=== PATIENT | male | born 1945 | race Caucasian/White ===

== ENCOUNTER 2016-12-27 14:35 | Emergency (ER) | payer BC, MEDICAID ==
[~2016-12-27] VITALS: Ht 172.7 cm; Wt 77.1 kg
[2016-12-27 14:45] VITALS: BP 135/71
[2016-12-27] MEDS ORDERED: DIATR MEGLU/DIATRIZOATE SODIUM 30 ML BOTTLE (GASTROGRAPHIN) PO ONE (15:00)
[2016-12-27] MEDS ORDERED: DIATR MEGLU/DIATRIZOATE SODIUM 30 ML BOTTLE (GASTROGRAPHIN) ONE (15:07)
== END 2016-12-27 18:52 | disposition home or self-care (01) ==
LOC: ER 14:38
DX: Z43.1 Encounter for attention to gastrostomy (principal); N18.6 End stage renal disease; Z99.2 Dependence on renal dialysis
CPT/HCPCS: 74000-TC; A4606; Q9963; Z7610

== ENCOUNTER 2017-02-22 08:42 | Inpatient (IN) | payer BC, MEDICAID ==
[~2017-02-22] VITALS: Ht 165.1 cm; Wt 59.4 kg
--- NOTE | 2017-02-22 08:47 | NUR ---
Esthela from [facility] due to altered mental status. Per rescue pt is usually verbally responsive. Patient is vent trache dependent, tolerating current setting of ac 4 tv 510 fio2 40. Sating 100%. Gt noted covered with dry dressing. Abdomen non tendered and non distended. Patient with hd cath on rcw. Per report, last hd was 02/19/17. Patient's skin is warm to touch and non diaphoretic. Febrile at this time. Iv on right wrist noted patent. Rt at bedside. Gowned patient and connected to tele monitor. Awating for md blue
[2017-02-22 08:50] VITALS: BP 108/49
[2017-02-22] MEDS ORDERED: DOXA2TAB2 GT (09:03)
[2017-02-22] MEDS ORDERED: AMIN30LI2 GT (09:03)
[2017-02-22] MEDS ORDERED: ALLO100T GT (09:03)
[2017-02-22] MEDS ORDERED: ZOLP5TAB2 PO (09:03)
[2017-02-22] MEDS ORDERED: HYDR-552 GT (09:03)
[2017-02-22] MEDS ORDERED: ATOR20TA GT (09:03)
[2017-02-22] MEDS ORDERED: SIME80TA15 GT (09:03)
[2017-02-22] MEDS ORDERED: LORA-258 GT (09:03)
[2017-02-22] MEDS ORDERED: FAMO10TA94 GT (09:03)
[2017-02-22] MEDS ORDERED: CARV6.25 GT (09:03)
[2017-02-22] MEDS ORDERED: ACID1TAB14 GT (09:03)
[2017-02-22] MEDS ORDERED: AMLO5TAB2 GT (09:03)
[2017-02-22] MEDS ORDERED: ESCI10TA GT (09:03)
[2017-02-22] MEDS ORDERED: DIPH1TAB GT (09:03)
[2017-02-22] MEDS ORDERED: ISOS10TA2 GT (09:03)
[2017-02-22] MEDS ORDERED: BENA20TA78 GT (09:03)
[2017-02-22] MEDS ORDERED: FOLI0.8T23 GT (09:03)
[2017-02-22] MEDS ORDERED: FERR-58 GT (09:13)
[2017-02-22] MEDS ORDERED: IPRA0.2S49 NEB ×2 (09:13)
[2017-02-22] MEDS ORDERED: NA P133E RC (09:13)
[2017-02-22] MEDS ORDERED: NUT.237L31 GT (09:13)
[2017-02-22] MEDS ORDERED: ASCO250T5 GT (09:13)
[2017-02-22] MEDS ORDERED: MAGN400O6 GT (09:13)
[2017-02-22] MEDS ORDERED: ALBU2.5V38 NEB ×2 (09:13)
[2017-02-22] MEDS ORDERED: SEVE0.8P GT (09:13)
[2017-02-22] MEDS ORDERED: COLC0.6T69 GT (09:13)
[2017-02-22] MEDS ORDERED: ACET-868 GT (09:13)
--- NOTE | 2017-02-22 09:30 | NUR ---
lab tach at bedside for blood draw
[2017-02-22] MEDS ORDERED: IV NS 0.9% 1,000 ML ONE (09:46)
[2017-02-22] MEDS ORDERED: IV SET PRIMARY PUMP SET 1 EA INFUS.SET MC ONE ×3 (09:47→12:45)
[2017-02-22] MEDS ORDERED: VANCOMYCIN 1 GM in IV D5W 250 ML IV ONE (10:00)
[2017-02-22] MEDS ORDERED: IV NS 0.9% 1,000 ML BAG IV ONE (10:00)
[2017-02-22] MEDS ORDERED: CEFEPIME 1 GM in IV D5W 50 ML IV ONE (10:00)
[2017-02-22 10:01] LABS: BASOPHILS # (AUTO) 0.1 /CMM (0.0-0.2); BASOPHILS % (AUTO) 0.5 % (0.0-2.0); EOSINOPHILS % (AUTO) 0.1 % (0.0-6.0); HEMATOCRIT 26 % (39-51); HEMOGLOBIN 8.1 g/dL (13.5-17.5); LYMPHOCYTES # (AUTO) 0.2 /CMM (0.8-4.8); LYMPHOCYTES % (AUTO) 1.3 % (20.0-44.0); MEAN CORPUSCULAR HEMOGLOBIN 31 PG (26.0-33.0); MEAN CORPUSCULAR HGB CONC 31 g/dl (31.0-36.0); MEAN CORPUSCULAR VOLUME 99 fL (80-96); MONOCYTES # (AUTO) 0.2 /CMM (0.1-1.30); MONOCYTES % (AUTO) 1.4 % (2.0-12.0); NEUTROPHILS # (AUTO) 12.7 /CMM (1.8-8.9); NEUTROPHILS % (AUTO) 96.7 % (43.0-81.0); PLATELET COUNT (AUTO) 186 /CMM (150-450); RDW COEFFICIENT OF VARIATION 17.8 (11.5-15.0); RED BLOOD CELL COUNT(AUTO) 2.65 MIL/uL (4.5-6.0); WHITE BLOOD COUNT (AUTO) 13.2 K/uL (4.3-11.0)
[2017-02-22 10:05] LABS: ABG BASE EXCESS -5.8 mmol/L; ABG OXYGEN SATURATION 95.7 % (92.0-98.5); ABG PCO2 49.7 mmHg (35.0-45.0); ABG PH 7.248 (7.350-7.450); ABG PO2 87.9 mmHg (75.0-100.0); ABG TOTAL HEMOGLOBIN 8.4 G/dL (13.5-18.0); AaDO2 140.1 mmHg; COHb 1.3 % (0.5-1.5); MetHb 0.6 % (0.0-1.5); O2Hb 93.9 % (94.0-97.0); SITE, ABG Left Radial; VENT MODE, BG AC 4 500 40% +5
[2017-02-22 10:13] LABS: CALCIUM, SERUM 8.3 mg/dL (8.5-10.1); CARBON DIOXIDE 24 mmol/L (21-32); CHLORIDE 102 mmol/L (98-107); CREATININE 3.4 mg/dL (0.6-1.3); GLUCOSE 136 mg/dL (74-106); POTASSIUM 4.7 mmol/L (3.5-5.1); SODIUM SERUM 130 mmol/L (136-145); UREA NITROGEN, BLOOD 40 mg/dL (7-18)
[2017-02-22 10:17] LABS: INR 1.19 (0.87-1.13); PROTHROMBIN TIME 12.5 SECS (9.5-12.7)
[2017-02-22 10:19] LABS: ALANINE AMINOTRANSFERASE 13 U/L (12-78); ALBUMIN 2.1 g/dL (3.4-5.0); ALKALINE PHOSPHATASE 105 U/L (46-116); ASPARTATE AMINOTRANSFERASE 10 U/L (15-37); BILIRUBIN,DIRECT 0.2 mg/dL (0.0-0.2); BILIRUBIN,TOTAL 0.4 mg/dL (0.2-1.0); TOTAL PROTEIN, SERUM 5.6 g/dL (6.4-8.2)
[2017-02-22 10:21] LABS: TROPONIN I < 0.017 ng/mL (0.00-0.056)
--- NOTE | 2017-02-22 10:27 | NUR ---
PA PRUITT CALLED TO GIVE [phone]
[2017-02-22 10:33] LABS: LACTIC ACID 1.4 mmol/L (0.4-2.0)
[2017-02-22 11:22] LABS: BAND % (MANUAL) 15 % (0.0-5.0); LYMPHOCYTES % (MANUAL) 1 % (16-48); METAMYELOCYTES % 1 % (0-0); MONOCYTES % (MANUAL) 5 % (0-11.0); NEUTROPHILS % (MANUAL) 78 (42-76)
[2017-02-22 11:23] VITALS: BP 104/52
[2017-02-22 11:25] LABS: ANISOCYTOSIS 1+; PLATELET ESTIMATE ADEQUATE
--- NOTE | 2017-02-22 11:50 | NUR ---
Report given to WENDY Dela Cruz for change of condition
--- NOTE | 2017-02-22 11:53 | NUR ---
Patient transported to [facility] via acls protocol.
[2017-02-22 12:00] VITALS: BP 103/65
[2017-02-22] MEDS ORDERED: ACETAMINOPHEN 325 MG TABLET PO PRN (12:00)
[2017-02-22] MEDS ORDERED: ZOLPIDEM TARTRATE 5 MG TABLET PO PRN (12:00)
[2017-02-22] MEDS ORDERED: ONDANSETRON HCL/PF 4 MG/2 ML VIAL IVP PRN (12:00)
[2017-02-22] MEDS ORDERED: MORPHINE SULFATE INJ 2 MG/ML DISP.SYRIN IV PRN (12:00)
[2017-02-22] MEDS ORDERED: MAGNESIUM HYDROXIDE 30 ML UDC PO PRN (12:00)
[2017-02-22] MEDS ORDERED: PIPERACILLIN /TAZOBACTAM 3.375 G in IV D5W 100 ML IV SCH (12:00)
[2017-02-22] MEDS ORDERED: ENOXAPARIN SODIUM 40 MG/0.4 ML DISP.SYRIN SQ SCH (12:00)
[2017-02-22] MEDS ORDERED: MAG HYDROX/AL HYDROX/SIMETH 30 ML UDC PO PRN (12:00)
--- NOTE | 2017-02-22 12:30 | NUR ---
RN INITIAL NOTES PT IN BED, A/O X1, SLOW TO RESPOND TO QUESTION BUT DOES RESPOND (MOUTHS WORDS) APPROPRIATELY. [facility] VENT, SHILEY #6, AC 4, TV 500, FIO2 40%, PEEP 5, TOLERATING WELL. ON TELE MONITOR WITH SR 60'S, DENIES CHEST PAIN. PT HAS GT CLAMPED, CDI. IV ON RIGHT WRIST 18G SALINE FLUSHED, CDI, NO SIGNS OF INFECTION/INFILTRATION; RCW HD CATH (LAST HD PER FACILITY WAS 02/19/17); PT IS NPO FOR NOW. SKIN WAS ASSESSED/PICTURES TAKEN BY CHARGE NURSE TRINA; SACRAL STAGE 3, LEFT BUTTOCK STAGE 3, LEFT HIP/THIGH STAGE 1, BILATERAL FEET REDNESS/PINK, BUA DISCOLORATION/SCABS/BRUISES, LFA SKIN TEAR/SCABS/BRUISES, MEPILEX APPLIED, PICTURES IN PTS CHART; PTS BLE CONTRACTED. CALL LIGHT WITHIN EASY REACH, SAFETY MEASURES MAINTAINED, WILL CONTINUE TO MONITOR AND FOLLOW MD ORDERS. PT IN OVERALL STABLE CONDITION.
[2017-02-22] MEDS ORDERED: FEE PK DOSING 1 MIN EA MC ONE (12:38)
[2017-02-22] MEDS ORDERED: SECONDARY IV SET 1 EA INFUS.SET MC ONE ×3 (12:45→20:03)
[2017-02-22] MEDS: IV NS 0.9% 1,000 ML IV PRN (12:55)
[2017-02-22] MEDS ORDERED: PIPERACILLIN /TAZOBACTAM 2.25 G in IV D5W 50 ML IV SCH (13:00)
[2017-02-22] MEDS ORDERED: LEVOFLOXACIN 500 MG /D5W 100ML 100 ML IV ONE (13:00)
[2017-02-22] MEDS: HEPARIN SODIUM, PORCINE 5000 UNITS/1 ML VIAL SQ SCH (13:23)
[2017-02-22] MEDS ORDERED: ALBUTEROL FS 2.5 MG/3 ML VIAL.NEB NEB PRN (15:30)
[2017-02-22] MEDS ORDERED: NA PHOS,M-B/NA PHOS,DI-BA 1 EA ENEMA RC PRN (15:30)
[2017-02-22] MEDS ORDERED: IPRATROPIUM NEB FS 0.5 MG/2.5 ML AMPUL.NEB NEB PRN (15:30)
[2017-02-22 16:00] VITALS: BP 102/52
[2017-02-22] MEDS: FERROUS SULFATE (325 MG) 325 MG/TAB TABLET GT SCH (17:00)
[2017-02-22] MEDS: BENAZEPRIL HCL 20 MG TABLET GT SCH (17:00)
[2017-02-22] MEDS: PROSOURCE / PROSTAT (PYXIS) 30 ML UDC GT SCH (17:00)
[2017-02-22] MEDS: ISOSORBIDE DINITRATE (10MG) 10 MG TABLET GT SCH (17:00)
[2017-02-22] MEDS: ACIDOPHILUS/BULGARICUS 1 EACH TAB.CHEW GT SCH (17:00)
[2017-02-22] MEDS: ESCITALOPRAM OXALATE (10 MG) 10 MG TABLET GT SCH (17:00)
[2017-02-22] MEDS: CARVEDILOL 6.25 MG TABLET GT SCH (17:00)
[2017-02-22] MEDS: SEVELAMER CARBONATE 0.8 GM POWD.PACK GT SCH (17:01)
[2017-02-22] MEDS: LORAZEPAM 0.5 MG TABLET GT SCH ×2 (17:02→23:08)
[2017-02-22] MEDS: DOXAZOSIN MESYLATE (1 MG) 1 MG TABLET GT SCH (17:30)
[2017-02-22] MEDS: ALBUTEROL FS 2.5 MG/3 ML VIAL.NEB NEB SCH ×2 (17:34→20:00)
[2017-02-22] MEDS: IPRATROPIUM NEB FS 0.5 MG/2.5 ML AMPUL.NEB NEB SCH ×2 (17:34→20:00)
--- NOTE | 2017-02-22 18:47 | NUR ---
RN NOTES PT IS REFUSING TO HAVE PILLOWS UNDER AND BETWEEN HIS LEGS, EVEN AFTER DISCUSSING THE PROS TO HAVING THEM. PTS YOUNGER BROTHER IS AT BEDSIDE. SUCTIONED PT TWICE, SMALL AMOUNT OF YELLOW PHLEGM.
--- NOTE | 2017-02-22 19:07 | NUR ---
RN CLOSING NOTES PT IN BED, COMFORTABLE, IV CDI, NO SIGNS OF INFECTION/INFILTRATION, HD CATH INTACT, ALL MD ORDERS CARRIED OUT, TOLERATING MECH VENT WELL, DENIES CHEST PAIN. CALL LIGHT WITHIN EASY REACH, SAFETY MEASURES MAINTAINED, REPORT GIVEN TO NIGHT NURSE FOR MAVERICK. PTS YOUNGER BROTHER AT BEDSIDE.
--- NOTE | 2017-02-22 19:30 | NUR ---
RN INITIAL NOTES RECEIVED PT AWAKE ON BED, NON-VERBAL BUT ABLE TO MOUTH WORDS. ON VENT, SHILEY 6, AC 4, TV 500, 40% FIO2, PEEP 5, SATURATING WELL. CURRENTLY SR ON THE MONITOR, HR 70'S. PT IS ANURIC. NPO, GTUBE IS CLAMPED. RIGHT CHEST WALL HD CATH NOTED. RIGHT WRIST 18G WITH NS @ 75MLS/HR, FLUSHED AND PATENT, NO S/S OF INFILTRATION/INFECTION, DRESSING CDI. PATIENT REFUSES BILATERAL LEGS AND FEET TO BE OFFLOADED. BED LOW AND LOCKED, SIDERAILS UP. WILL MONITOR
[2017-02-22 20:00] VITALS: BP 104/46
[2017-02-22] MEDS: MEROPENEM 500 MG in IV NS 0.9% 50 ML IV SCH (20:10)
[2017-02-22] MEDS: SIMETHICONE 80 MG TAB.CHEW GT SCH (20:45)
--- NOTE | 2017-02-22 23:09 | NUR ---
RN NOTES HELD THE SCHEDULED 0.5MG ATIVAN PO BECAUSE PATIENT HAS BEEN DROWSY.
[2017-02-23] VITALS: BP 114/52
[2017-02-23] MEDS: HEPARIN SODIUM, PORCINE 5000 UNITS/1 ML VIAL SQ SCH ×2 (00:06→13:17)
[2017-02-23] MEDS: ALBUTEROL FS 2.5 MG/3 ML VIAL.NEB NEB SCH ×7 (00:17→23:51)
[2017-02-23] MEDS: IPRATROPIUM NEB FS 0.5 MG/2.5 ML AMPUL.NEB NEB SCH ×7 (00:17→23:51)
[2017-02-23 04:00] VITALS: BP 115/49
[2017-02-23] MEDS: SIMETHICONE 80 MG TAB.CHEW GT SCH ×3 (04:56→20:54)
[2017-02-23] MEDS: IV NS 0.9% 1,000 ML IV PRN (04:57)
[2017-02-23] MEDS: LORAZEPAM 0.5 MG TABLET GT SCH ×3 (06:00→18:00)
--- NOTE | 2017-02-23 06:03 | NUR ---
RN NOTES HELD THE SCHEDULED 0.5MG ATIVAN PO BECAUSE PATIENT HAS BEEN DROWSY.
--- NOTE | 2017-02-23 06:30 | NUR ---
RN CLOSING NOTES PT REMAINS STABLE OF THE MOMENT. DUE MEDS GIVEN, AM CARE PROVIDED. WILL ENDORSE TO AM RN
--- NOTE | 2017-02-23 07:10 | NUR ---
RN INITIAL NOTE RECEIVED PT FROM PM NURSE. PT A/O X1, MOUTH WORDS. HARJINDER #6 AC 4 TV 500 FI02 40% PEEP 5 NO S/S OF ACUTE RESP DISTRESS. TELE SR. . GT NPO. IV R WRIST 18 G NS @75 ML/HR RCW HD CATH. PT CLEAN WARM AND DRY. ALL SAFETY MEASURES IN PLACE.WILL CONTINUE TO MONITOR CLOSELY
[2017-02-23 07:18] LABS: EOSINOPHILS % (AUTO) 0.3 % (0.0-6.0); HEMATOCRIT 26 % (39-51); HEMOGLOBIN 8.1 g/dL (13.5-17.5); LYMPHOCYTES # (AUTO) 0.2 /CMM (0.8-4.8); LYMPHOCYTES % (AUTO) 2.8 % (20.0-44.0); MEAN CORPUSCULAR HEMOGLOBIN 31 PG (26.0-33.0); MEAN CORPUSCULAR HGB CONC 31 g/dl (31.0-36.0); MEAN CORPUSCULAR VOLUME 100 fL (80-96); MONOCYTES # (AUTO) 0.3 /CMM (0.1-1.30); MONOCYTES % (AUTO) 4.1 % (2.0-12.0); NEUTROPHILS # (AUTO) 7.2 /CMM (1.8-8.9); NEUTROPHILS % (AUTO) 92.8 % (43.0-81.0); PLATELET COUNT (AUTO) 157 /CMM (150-450); RDW COEFFICIENT OF VARIATION 19.3 (11.5-15.0); RED BLOOD CELL COUNT(AUTO) 2.62 MIL/uL (4.5-6.0); WHITE BLOOD COUNT (AUTO) 7.7 K/uL (4.3-11.0)
[2017-02-23 07:35] LABS: ALBUMIN 1.8 g/dL (3.4-5.0); BILIRUBIN,TOTAL 0.3 mg/dL (0.2-1.0); CALCIUM, SERUM 7.7 mg/dL (8.5-10.1); CREATININE 3.6 mg/dL (0.6-1.3); MAGNESIUM 2.3 mg/dL (1.8-2.4); PHOSPHORUS 3.7 mg/dL (2.5-4.9); POTASSIUM 4.5 mmol/L (3.5-5.1); TOTAL PROTEIN, SERUM 5.2 g/dL (6.4-8.2)
[2017-02-23 08:00] VITALS: BP 120/47
--- NOTE | 2017-02-23 08:45 | NUR ---
RN NOTE CONTACTED AUDRA FROM HD. POSSIBLE HD TODAY FOR PT.
[2017-02-23] MEDS: MEROPENEM 500 MG in IV NS 0.9% 50 ML IV SCH ×2 (08:50→20:54)
[2017-02-23] MEDS: PANTOPRAZOLE 40 MG VIAL IV SCH (08:55)
[2017-02-23] MEDS: ALLOPURINOL 100 MG TABLET GT SCH (08:55)
[2017-02-23] MEDS: FAMOTIDINE (20 MG) 20 MG TABLET GT SCH (08:55)
[2017-02-23] MEDS: SEVELAMER CARBONATE 0.8 GM POWD.PACK GT SCH ×3 (08:55→17:59)
[2017-02-23] MEDS: FERROUS SULFATE (325 MG) 325 MG/TAB TABLET GT SCH ×3 (08:56→18:00)
[2017-02-23] MEDS: ASCORBIC ACID 500 MG TABLET GT SCH (08:57)
[2017-02-23] MEDS: ACIDOPHILUS/BULGARICUS 1 EACH TAB.CHEW GT SCH ×2 (08:57→17:59)
[2017-02-23] MEDS: ESCITALOPRAM OXALATE (10 MG) 10 MG TABLET GT SCH ×2 (08:57→18:00)
[2017-02-23] MEDS: COLCHICINE 0.6 MG TABLET GT SCH (08:59)
[2017-02-23] MEDS: BENAZEPRIL HCL 20 MG TABLET GT SCH ×2 (09:00→17:00)
[2017-02-23] MEDS: CARVEDILOL 6.25 MG TABLET GT SCH ×2 (09:00→16:59)
[2017-02-23] MEDS: VIT B CMPLX 3/FA/VIT C/BIOTIN 1 TAB TABLET GT SCH (09:00)
[2017-02-23] MEDS: AMLODIPINE BESYLATE 5 MG TABLET GT SCH (09:00)
[2017-02-23] MEDS: DOXAZOSIN MESYLATE (1 MG) 1 MG TABLET GT SCH ×2 (09:00→16:59)
[2017-02-23] MEDS: ISOSORBIDE DINITRATE (10MG) 10 MG TABLET GT SCH ×3 (09:00→17:00)
[2017-02-23] MEDS: ATORVASTATIN 10 MG TABLET GT SCH (09:01)
[2017-02-23] MEDS: PROSOURCE / PROSTAT (PYXIS) 30 ML UDC GT SCH ×2 (09:02→17:59)
--- NOTE | 2017-02-23 09:15 | NUR ---
WOUND CARE CONSULT: PT CALM AT THIS TIME. WOUND VAC DSG CHANGED ON RT HEEL. PHOTO TAKEN BY RN. SKIN PREP AND VAC DRAPE TO PERIWOUND AREA, GRANUFOAM TO WOUND, BRIDGING TECHNIQUE USED. PT TOLERATED WELL. ONLY SCANT AMOUNT OF PINK DRAINAGE NOTED. OFFLOADING OF RT HEEL VERY DIFFICULT DUE TO CONTRACTURE. HEELS FLOATED. PT ON FIRST STEP MATTRESS. MD IN AGREEMENT WITH PLAN OF CARE.
--- NOTE | 2017-02-23 09:26 | NUR ---
WOUND CARE CONSULT: PT PRESENTS WITH UNSTAGEABLE ULCERS TO LEFT BUTTOCK AND SACRUM, PRESENT ON ADMISSION. PT HAS CONTRACTED LOWER EXTREMITIES. 4+ PITTING EDEMA NOTED TO FEET WITH EDEMA TO UPPER EXTREMITIES ALSO AND SOME GENERALIZED EDEMA. ALL SKIN AND WOUND RECOMMENDATIONS DISCUSSED WITH NURSING STAFF. RECOMMEND SURGICAL CONSULT. PT ON [place] ISOFLEX LOW AIRLOSS BED. WILL SEE PRN. JOYA IN AGREEMENT WITH PLAN OF CARE. Addendum: 02/23/17 at 0928 by VEENA SARAVIA WNDNU Amended: Links added.
[2017-02-23] MEDS ORDERED: HYDROGEL DRESSING 90 GM TUBE TP PRN (09:30)
[2017-02-23] MEDS: HYDROGEL DRESSING 90 GM TUBE TP SCH (10:26)
[2017-02-23 11:43] LABS: THYROID STIMULATING HORMONE 8.568 uIU/mL (0.358-3.74)
[2017-02-23 12:00] VITALS: BP 123/47
[2017-02-23] MEDS ORDERED: EPOETIN ALFA (10,000 UNIT) 10,000 UNIT/ML VIAL SQ ONE (12:00)
--- NOTE | 2017-02-23 12:08 | NUR ---
RN NOTE NON-ADMINISTRATION FOR ATIVAN. NO S/S OF AGITATION PT NOT RESTLESS CALM AND OPENS EYES SPONTANEOUSLY.
[2017-02-23] MEDS ORDERED: VANCOMYCIN 500 MG in IV D5W 100 ML IV PRN (13:00)
[2017-02-23] MEDS: NEOMY SULF/BACITRAC ZN/POLY 15 GM TUBE TP SCH (13:30)
--- NOTE | 2017-02-23 13:31 | NUR ---
PT BEING WORKED ON, RN WILL CALL WHEN READY.
[2017-02-23] MEDS ORDERED: LIDOCAINE 1%-EPI 1:100,000 20 ML VIAL TP ONE (14:00)
[2017-02-23] MEDS ORDERED: SILVER NITRATE APPLICATOR 1 EA BOX TP ONE (14:00)
--- NOTE | 2017-02-23 15:10 | NUR ---
PT GETTING DIALYSIS, TRY CT SCAN AROUND 1630.
[2017-02-23 16:00] VITALS: BP 123/49
[2017-02-23] MEDS ORDERED: VANCOMYCIN 1 GM in IV D5W 250 ML IV ONE (17:00)
[2017-02-23] MEDS: RIFAMPIN 300 MG CAPSULE PO SCH (19:12)
--- NOTE | 2017-02-23 19:20 | NUR ---
RN INIITAL NOTE RECEIVED PT IN NO ACUTE DISTRESS IN BED. PT IS A/O X 1 AND ABLE TO MOUTH WORDS. PT IS ON MECHANICAL VENT VIA TRACH. TRACH SITE IS CLEAN DRY AND INTACT. PT TOLERATING VENT SETTING WELL. PT IS ON TELE WITH SR 1ST DEGREE AV BLOCK ON THE MONITOR. PT HAS GTUBE THAT IS CLEAN DRY INTACT AND PATENT WITH WATER FLUSH. PT IS NPO AND GTUBE IS CURRENTLY CLAMPED. PT DOES NOT HAVE ANY S/S OF SOB, DIFFICULTY BREATHING OR PAIN AT THIS TIME. PT HAS RWRIST 18G THAT IS CLEAN DRY INTACT AND PATENT WITH NS @ 75ML/HR. PT HAS RCW HD CATH THAT IS CLEAN DRY AND INTACT. BED IN LOW LOCK POSITION WITH RIALS UP X 2. CALL LIGHT WITHIN REACH AND ALL SAFETY MEASURES ENSURED AND CARRIED OUT. WILL CONTINUE TO MONITOR PT
--- NOTE | 2017-02-23 19:51 | NUR ---
RN CLOSING NOTE PT A/O X1, MOUTH WORDS. DENINANCY #6 AC 12 TV 550 FI02 40% PEEP 5 NO S/S OF ACUTE RESP DISTRESS. TELE SR. . GT NPO. IV R WRIST 18 G NS @75 ML/HR RCW HD CATH.PT HAD HD TODAY 2L OUT. PT CLEAN WARM AND DRY. ALL SAFETY MEASURES IN PLACE. REPORT GIVEN TO PM NURSE.
[2017-02-23 20:00] VITALS: BP 123/62
[2017-02-23] MEDS ORDERED: IV NS 0.9% 250 ML IV ONE (20:53)
[2017-02-23] MEDS ORDERED: SECONDARY IV SET 1 EA INFUS.SET MC ONE (20:58)
--- NOTE | 2017-02-23 23:00 | NUR ---
RN NOTE TRIED TO CONTACT SON FOR CONSENT TO DEBRIDEMENT OF SACRUM. UNABLE TO CONTACT SON. TRIED TWICE. WILL TRY AGAIN IN THE AM.
[2017-02-24] VITALS: BP 123/62
[2017-02-24] MEDS: LORAZEPAM 0.5 MG TABLET GT SCH ×4 (00:35→18:00)
[2017-02-24] MEDS: HEPARIN SODIUM, PORCINE 5000 UNITS/1 ML VIAL SQ SCH ×2 (00:54→13:00)
[2017-02-24 04:00] VITALS: BP 124/59
[2017-02-24] MEDS: ALBUTEROL FS 2.5 MG/3 ML VIAL.NEB NEB SCH ×6 (04:05→23:04)
[2017-02-24] MEDS: IPRATROPIUM NEB FS 0.5 MG/2.5 ML AMPUL.NEB NEB SCH ×6 (04:05→23:05)
[2017-02-24] MEDS: SIMETHICONE 80 MG TAB.CHEW GT SCH ×3 (05:50→21:16)
--- NOTE | 2017-02-24 07:17 | NUR ---
RN CLOSING NOTE PT REMAINS IN NO ACUTE DISTRESS IN BED. PT DID NOT HAVE ANY SIGNIFICANT CHANGE IN CONDITION DURING SHIFT. ALL NEEDS MET ALL ORDERS CARRIED OUT. WILL ENDORSE TO AM RN FOR CONTINUITY OF CARE.
--- NOTE | 2017-02-24 07:30 | NUR ---
INITIAL NOTE PATIENT RESTING IN BED, A+OX3, MOUTHS WORDS. BREATHING EVEN AND UNLABORED WITH MECH VENT. GT PATENT, NO RESIDUALS, NO LEAKING, NO FEEDING. R WRIST IV PATENT. PLAN FOR DEBRIDEMENT. DISCUSSED PLAN OF CARE. REPOSITIONED. CALL LIGHT IN REACH.
--- NOTE | 2017-02-24 07:36 | NUR ---
RN NOTE TRIED TO CONTACT SON TO GET CONSENT FOR DEBRIDEMENT OF SACRUM. UNABLE TO REACH SON. TRIED TO CALL 3 TIMES AND UNABLE TO LEAVE MESSAGE. WILL ENDORSE TO AM RN.
[2017-02-24 08:00] VITALS: BP_SYST 132; BP_SYST 137; BP_DIAS 59; BP_DIAS 62
[2017-02-24 08:03] LABS: BASOPHILS % (AUTO) 0.1 % (0.0-2.0); EOSINOPHILS % (AUTO) 0.6 % (0.0-6.0); HEMATOCRIT 25 % (39-51); HEMOGLOBIN 7.8 g/dL (13.5-17.5); LYMPHOCYTES # (AUTO) 0.2 /CMM (0.8-4.8); LYMPHOCYTES % (AUTO) 4.7 % (20.0-44.0); MEAN CORPUSCULAR HEMOGLOBIN 31 PG (26.0-33.0); MEAN CORPUSCULAR HGB CONC 31 g/dl (31.0-36.0); MEAN CORPUSCULAR VOLUME 99 fL (80-96); MONOCYTES # (AUTO) 0.3 /CMM (0.1-1.30); MONOCYTES % (AUTO) 6.3 % (2.0-12.0); NEUTROPHILS # (AUTO) 4.5 /CMM (1.8-8.9); NEUTROPHILS % (AUTO) 88.3 % (43.0-81.0); PLATELET COUNT (AUTO) 143 /CMM (150-450); RDW COEFFICIENT OF VARIATION 19.3 (11.5-15.0); RED BLOOD CELL COUNT(AUTO) 2.52 MIL/uL (4.5-6.0); WHITE BLOOD COUNT (AUTO) 5.2 K/uL (4.3-11.0)
[2017-02-24] MEDS: FAMOTIDINE (20 MG) 20 MG TABLET GT SCH (08:14)
[2017-02-24] MEDS: SEVELAMER CARBONATE 0.8 GM POWD.PACK GT SCH ×3 (08:14→16:01)
[2017-02-24] MEDS: PANTOPRAZOLE 40 MG VIAL IV SCH (08:14)
[2017-02-24] MEDS: COLCHICINE 0.6 MG TABLET GT SCH (08:14)
[2017-02-24] MEDS: AMLODIPINE BESYLATE 5 MG TABLET GT SCH (08:15)
[2017-02-24] MEDS: ACIDOPHILUS/BULGARICUS 1 EACH TAB.CHEW GT SCH ×2 (08:15→16:01)
[2017-02-24] MEDS: RIFAMPIN 300 MG CAPSULE PO SCH (08:15)
[2017-02-24] MEDS: ATORVASTATIN 10 MG TABLET GT SCH (08:16)
[2017-02-24] MEDS: ISOSORBIDE DINITRATE (10MG) 10 MG TABLET GT SCH ×3 (08:16→16:00)
[2017-02-24] MEDS: ESCITALOPRAM OXALATE (10 MG) 10 MG TABLET GT SCH ×2 (08:16→16:01)
[2017-02-24] MEDS: PROSOURCE / PROSTAT (PYXIS) 30 ML UDC GT SCH ×2 (08:16→16:01)
[2017-02-24] MEDS: BENAZEPRIL HCL 20 MG TABLET GT SCH ×2 (08:16→16:01)
[2017-02-24] MEDS: ALLOPURINOL 100 MG TABLET GT SCH (08:17)
[2017-02-24] MEDS: ASCORBIC ACID 500 MG TABLET GT SCH (08:17)
[2017-02-24] MEDS: DOXAZOSIN MESYLATE (1 MG) 1 MG TABLET GT SCH ×2 (08:17→16:01)
[2017-02-24] MEDS: VIT B CMPLX 3/FA/VIT C/BIOTIN 1 TAB TABLET GT SCH (08:17)
[2017-02-24] MEDS: CARVEDILOL 6.25 MG TABLET GT SCH ×2 (08:17→16:02)
[2017-02-24] MEDS: NEOMY SULF/BACITRAC ZN/POLY 15 GM TUBE TP SCH (08:18)
[2017-02-24] MEDS: HYDROGEL DRESSING 90 GM TUBE TP SCH (08:18)
[2017-02-24] MEDS: FERROUS SULFATE (325 MG) 325 MG/TAB TABLET GT SCH ×3 (08:18→16:01)
[2017-02-24] MEDS: MEROPENEM 500 MG in IV NS 0.9% 50 ML IV SCH ×2 (08:33→21:16)
[2017-02-24 08:34] LABS: CALCIUM, SERUM 7.4 mg/dL (8.5-10.1); CREATININE 3.1 mg/dL (0.6-1.3); POTASSIUM 3.9 mmol/L (3.5-5.1)
[2017-02-24 10:01] LABS: ABG BASE EXCESS -3.1 mmol/L; ABG OXYGEN SATURATION 95.2 % (92.0-98.5); ABG PCO2 41.7 mmHg (35.0-45.0); ABG PH 7.347 (7.350-7.450); ABG PO2 81.7 mmHg (75.0-100.0); ABG TOTAL HEMOGLOBIN 8.2 G/dL (13.5-18.0); AaDO2 155.5 mmHg; COHb 0.8 % (0.5-1.5); MetHb 0.8 % (0.0-1.5); O2Hb 93.7 % (94.0-97.0); PEEP,BG 5 cm H2O; SITE, ABG Right Brachial; VT, ABG 550 mL
--- NOTE | 2017-02-24 11:26 | NUR ---
CALLED SON AGAIN, NO ANSWER. PATIENT'S BROTHER EDITH PRUITT CALLED [facility] AND SAID HE IS THE DPOA. REQUESTED PA BRING PAPER WORK OF CONSERVATORSHIP. BROTHER SAID HE WILL COME TODAY AND BRING IT. BROTHER GAVE VERBAL CONSENT FOR DEBRIDEMENT, CHARGE NURSE, SOON, WITNESSED.
--- NOTE | 2017-02-24 11:29 | NUR ---
PER DR. LORA VERBAL ORDER- RESUME FEEDING GLYTROL @ 50ML HR X24HRS.
[2017-02-24 12:00] VITALS: BP_SYST 120; BP_SYST 122; BP_DIAS 55; BP_DIAS 61
[2017-02-24] MEDS ORDERED: LEVOFLOXACIN 250 MG /D5W 50 ML 250 MG in PREMIX 1 EA IV SCH (13:00)
[2017-02-24] MEDS ORDERED: VANCOMYCIN 1 GM in IV D5W 250 ML IV SCH (13:00)
[2017-02-24] MEDS: GLYTROL 1,000 ML BAG GT SCH (13:03)
--- NOTE | 2017-02-24 13:37 | NUR ---
HD- 1L OUT, BP 119/55
[2017-02-24 16:00] VITALS: BP 128/62
--- NOTE | 2017-02-24 16:56 | NUR ---
DR. Dallas MOORE REMOVED RCW HD CATHETER. DR. MOORE AND DR. ARIEL PRATT SIGNED CONSENT FORM. NO BLEEDING NOTED. PT. TOLERATED PROCEDURE.
--- NOTE | 2017-02-24 19:08 | NUR ---
CLOSING NOTE PATIENT STABLE AT THE END OF THIS SHIFT. ATIVAN HELD BECAUSE PATIENT MOSTLY SLEEPING, HOWEVER AROUSES EASILY. BREATHING WNL WITH MECH VENT, LOC UNCHANGED. REPOSITIONED Q2 HR. BROTHER DID NOT VISIT. WILL ENDORSE TO NIGHT NURSE TO F/U ABOUT DPOA PAPER WORK, DR. TORRES AND JOSE M AWARE OF SITUATION. CALL LIGHT IN REACH.
--- NOTE | 2017-02-24 19:15 | NUR ---
RN INITIAL NOTES PT IS IN BED, HOB ELEVATED, A/O x1, MOUTH WORDS. NO SIGNS AND SYMPTOMS OF RESPIRATORY DISTRESS NOTED. TRACH INTACT, ON MECHANICAL VENT SHILEY #6, AC12, 550 TV, FIO2 40%, PEEP 5, TOLERATING VENT SETTINGS. ON TELE MONITOR SINUS RHYTHM. ON GT FEEDING GLYTROL @ 50CC/HR, 0 RESIDUAL NOTED. CALL LIGHTS WITHIN REACHED.
[2017-02-24 20:00] VITALS: BP 142/67
[2017-02-24] MEDS ORDERED: IV NS 0.9% 250 ML IV ONE (21:08)
[2017-02-25] VITALS: BP 133/61
--- NOTE | 2017-02-25 00:11 | NUR ---
ALL [facility] ONCE CLEARED FOR PATIENTS SAFETY.
[2017-02-25] MEDS: HEPARIN SODIUM, PORCINE 5000 UNITS/1 ML VIAL SQ SCH ×2 (00:44→12:57)
--- NOTE | 2017-02-25 00:44 | NUR ---
RN NOTES HEPARIN - NON ADMIN - PT FOR POSSIBLE DEBRIDEMENT AT AM.
[2017-02-25] MEDS: IPRATROPIUM NEB FS 0.5 MG/2.5 ML AMPUL.NEB NEB SCH ×6 (03:57→23:21)
[2017-02-25] MEDS: ALBUTEROL FS 2.5 MG/3 ML VIAL.NEB NEB SCH ×6 (03:57→23:21)
[2017-02-25 04:00] VITALS: BP 137/66
[2017-02-25] MEDS: SIMETHICONE 80 MG TAB.CHEW GT SCH ×3 (05:42→20:36)
[2017-02-25] MEDS: LORAZEPAM 0.5 MG TABLET GT SCH ×4 (05:45→17:46)
[2017-02-25 06:57] LABS: EOSINOPHILS # (AUTO) 0.1 /CMM (0.0-0.7); EOSINOPHILS % (AUTO) 1.2 % (0.0-6.0); HEMATOCRIT 25 % (39-51); LYMPHOCYTES # (AUTO) 0.3 /CMM (0.8-4.8); MEAN CORPUSCULAR HEMOGLOBIN 31 PG (26.0-33.0); MEAN CORPUSCULAR HGB CONC 32 g/dl (31.0-36.0); MEAN CORPUSCULAR VOLUME 98 fL (80-96); MONOCYTES # (AUTO) 0.4 /CMM (0.1-1.30); MONOCYTES % (AUTO) 6.3 % (2.0-12.0); NEUTROPHILS # (AUTO) 5.4 /CMM (1.8-8.9); NEUTROPHILS % (AUTO) 87.5 % (43.0-81.0); PLATELET COUNT (AUTO) 128 /CMM (150-450); RDW COEFFICIENT OF VARIATION 18.6 (11.5-15.0); RED BLOOD CELL COUNT(AUTO) 2.57 MIL/uL (4.5-6.0); WHITE BLOOD COUNT (AUTO) 6.2 K/uL (4.3-11.0)
[2017-02-25 07:13] LABS: CALCIUM, SERUM 7.7 mg/dL (8.5-10.1); CREATININE 2.8 mg/dL (0.6-1.3)
--- NOTE | 2017-02-25 07:35 | NUR ---
RN INITIAL NOTES PT IN BED, A/O X1, MOUTHS WORDS, ANSWERS QUESTIONS APPROPRIATELY, HOB ELEVATED 35 DEGREES, [facility] SHILEY #16, AC 16, TV 550, FIO2 40%, PEEP 5, TOLERATING WELL. ON TELE MONITOR WITH SR 70'S, DENIES CHEST PAIN. PT HAS SACRAL REDNESS, BILATERAL ARM DISCOLORATION, AND LEFT ARM SKIN TEAR, ALL DRESSINGS CDI. PT HAS GTF RUNNING GLYTROL @ 50 CC/HR, TOLERATING WELL, NO RESIDUAL. IV ON LFA 20G, RCW HD CATH WAS REMOVED 02/24/17, CDI, NO SIGNS OF INFECTION/INFILTRATION. CALL LIGHT WITHIN EASY REACH, SAFETY MEASURES MAINTAINED, WILL CONTINUE TO MONITOR AND FOLLOW MD ORDERS.
--- NOTE | 2017-02-25 07:39 | NUR ---
OFFICE AUTOMATION CLERK CLOSING NOTES NO SIGNIFICANT CHANGE OVERNIGHT. NO SIGNS AND SYMPTOMS OF RESPIRATORY DISTRESS NOTED, WOUND TREATMENT PROVIDED, TURNED AND REPOSITION Q2H, KEPT CLEAN AND DRY. GT FEEDING TOLERATING IT WELL. GT PATENT AND INTACT. ON TELE MONITOR SINUS RHYTHM. BED LOCKED AT THE LOWEST POSITION. ALL NEEDS ANTICIPATED AND MET. ISOLATION PRECAUTIONS OBSERVED. CALL LIGHTS WITHIN REACH. ENDORSED TO AM NURSE FOR CONTINUITY OF CARE.
[2017-02-25 08:00] VITALS: BP 123/53
[2017-02-25] MEDS: MEROPENEM 500 MG in IV NS 0.9% 50 ML IV SCH (09:24)
[2017-02-25] MEDS: PANTOPRAZOLE 40 MG VIAL IV SCH (09:25)
[2017-02-25] MEDS: AMLODIPINE BESYLATE 5 MG TABLET GT SCH (09:25)
[2017-02-25] MEDS: ACIDOPHILUS/BULGARICUS 1 EACH TAB.CHEW GT SCH ×2 (09:25→16:36)
[2017-02-25] MEDS: FERROUS SULFATE (325 MG) 325 MG/TAB TABLET GT SCH ×3 (09:25→16:36)
[2017-02-25] MEDS: RIFAMPIN 300 MG CAPSULE PO SCH (09:25)
[2017-02-25] MEDS: ISOSORBIDE DINITRATE (10MG) 10 MG TABLET GT SCH ×3 (09:25→16:36)
[2017-02-25] MEDS: BENAZEPRIL HCL 20 MG TABLET GT SCH ×2 (09:26→16:36)
[2017-02-25] MEDS: ASCORBIC ACID 500 MG TABLET GT SCH (09:26)
[2017-02-25] MEDS: CARVEDILOL 6.25 MG TABLET GT SCH ×2 (09:26→16:36)
[2017-02-25] MEDS: VIT B CMPLX 3/FA/VIT C/BIOTIN 1 TAB TABLET GT SCH (09:26)
[2017-02-25] MEDS: ATORVASTATIN 10 MG TABLET GT SCH (09:26)
[2017-02-25] MEDS: COLCHICINE 0.6 MG TABLET GT SCH (09:26)
[2017-02-25] MEDS: FAMOTIDINE (20 MG) 20 MG TABLET GT SCH (09:26)
[2017-02-25] MEDS: PROSOURCE / PROSTAT (PYXIS) 30 ML UDC GT SCH ×2 (09:27→16:36)
[2017-02-25] MEDS: ALLOPURINOL 100 MG TABLET GT SCH (09:27)
[2017-02-25] MEDS: DOXAZOSIN MESYLATE (1 MG) 1 MG TABLET GT SCH ×2 (09:27→16:36)
[2017-02-25] MEDS: ESCITALOPRAM OXALATE (10 MG) 10 MG TABLET GT SCH ×2 (09:27→16:36)
[2017-02-25] MEDS: SEVELAMER CARBONATE 0.8 GM POWD.PACK GT SCH ×3 (09:27→16:36)
[2017-02-25] MEDS: NEOMY SULF/BACITRAC ZN/POLY 15 GM TUBE TP SCH (09:28)
[2017-02-25] MEDS: HYDROGEL DRESSING 90 GM TUBE TP SCH (09:28)
[2017-02-25 12:00] VITALS: BP 114/49
[2017-02-25] MEDS: GLYTROL 1,000 ML BAG GT SCH (13:09)
[2017-02-25 16:00] VITALS: BP 121/54
--- NOTE | 2017-02-25 19:08 | NUR ---
RN CLOSING NOTES PT IN STABLE CONDITION, TOLERATING MECH VENT WELL, NO PAIN, IV CDI, NO SIGNS OF INFECTION/INFILTRATION, ALL MD ORDERS CARRIED OUT, VSS, AFEBRILE, CALL LIGHT WITHIN EASY REACH, SAFETY MEASURES MAINTAINED, REPORT GIVEN TO NIGHT NURSE FOR MAVERICK.
[2017-02-25] MEDS ORDERED: SECONDARY IV SET 1 EA INFUS.SET MC ONE (19:51)
[2017-02-25] MEDS: COLISTIMETHATE SODIUM 100 MG in IV NS 0.9% 50 ML IV SCH (19:53)
[2017-02-25 20:00] VITALS: BP 126/54
[2017-02-25] MEDS: HYDROCODONE/APAP 5/325MG 1 EACH TABLET PO PRN (20:36)
[2017-02-26] VITALS: BP 127/69
[2017-02-26] MEDS: LORAZEPAM 0.5 MG TABLET GT SCH ×4 (00:29→17:05)
[2017-02-26] MEDS: HYDROCODONE/APAP 5/325MG 1 EACH TABLET PO PRN ×3 (00:30→20:28)
[2017-02-26] MEDS: HEPARIN SODIUM, PORCINE 5000 UNITS/1 ML VIAL SQ SCH ×2 (01:13→12:07)
[2017-02-26] MEDS: ALBUTEROL FS 2.5 MG/3 ML VIAL.NEB NEB SCH ×6 (03:17→23:04)
[2017-02-26] MEDS: IPRATROPIUM NEB FS 0.5 MG/2.5 ML AMPUL.NEB NEB SCH ×6 (03:17→23:04)
[2017-02-26 04:00] VITALS: BP 143/62
[2017-02-26] MEDS ORDERED: IV NS 0.9% 250 ML IV ONE (05:08)
[2017-02-26] MEDS: DIPHENOXYLATE HCL/ATROP SULF 1 UDTAB TABLET GT PRN ×2 (05:16→20:28)
[2017-02-26] MEDS: SIMETHICONE 80 MG TAB.CHEW GT SCH ×3 (05:16→20:28)
[2017-02-26 06:46] LABS: BASOPHILS % (AUTO) 0.4 % (0.0-2.0); EOSINOPHILS # (AUTO) 0.1 /CMM (0.0-0.7); EOSINOPHILS % (AUTO) 2.1 % (0.0-6.0); HEMATOCRIT 27 % (39-51); LYMPHOCYTES # (AUTO) 0.6 /CMM (0.8-4.8); LYMPHOCYTES % (AUTO) 9.6 % (20.0-44.0); MEAN CORPUSCULAR HEMOGLOBIN 30 PG (26.0-33.0); MEAN CORPUSCULAR HGB CONC 30 g/dl (31.0-36.0); MEAN CORPUSCULAR VOLUME 99 fL (80-96); MONOCYTES # (AUTO) 0.3 /CMM (0.1-1.30); MONOCYTES % (AUTO) 5.4 % (2.0-12.0); NEUTROPHILS # (AUTO) 5.3 /CMM (1.8-8.9); NEUTROPHILS % (AUTO) 82.5 % (43.0-81.0); PLATELET COUNT (AUTO) 129 /CMM (150-450); RDW COEFFICIENT OF VARIATION 18.9 (11.5-15.0); RED BLOOD CELL COUNT(AUTO) 2.69 MIL/uL (4.5-6.0); WHITE BLOOD COUNT (AUTO) 6.4 K/uL (4.3-11.0)
[2017-02-26 07:48] LABS: CALCIUM, SERUM 7.7 mg/dL (8.5-10.1); CREATININE 3.4 mg/dL (0.6-1.3); POTASSIUM 3.1 mmol/L (3.5-5.1)
[2017-02-26 08:00] VITALS: BP 132/57
[2017-02-26] MEDS: PANTOPRAZOLE 40 MG VIAL IV SCH (08:15)
[2017-02-26] MEDS: SEVELAMER CARBONATE 0.8 GM POWD.PACK GT SCH ×3 (08:15→17:04)
[2017-02-26] MEDS: PROSOURCE / PROSTAT (PYXIS) 30 ML UDC GT SCH ×2 (08:15→17:04)
[2017-02-26] MEDS: FAMOTIDINE (20 MG) 20 MG TABLET GT SCH (08:15)
[2017-02-26] MEDS: ATORVASTATIN 10 MG TABLET GT SCH (08:16)
[2017-02-26] MEDS: COLCHICINE 0.6 MG TABLET GT SCH (08:16)
[2017-02-26] MEDS: ESCITALOPRAM OXALATE (10 MG) 10 MG TABLET GT SCH ×2 (08:16→17:05)
[2017-02-26] MEDS: ISOSORBIDE DINITRATE (10MG) 10 MG TABLET GT SCH ×3 (08:16→17:05)
[2017-02-26] MEDS: RIFAMPIN 300 MG CAPSULE PO SCH (08:16)
[2017-02-26] MEDS: BENAZEPRIL HCL 20 MG TABLET GT SCH ×2 (08:16→17:05)
[2017-02-26] MEDS: VIT B CMPLX 3/FA/VIT C/BIOTIN 1 TAB TABLET GT SCH (08:16)
[2017-02-26] MEDS: DOXAZOSIN MESYLATE (1 MG) 1 MG TABLET GT SCH ×2 (08:16→17:05)
[2017-02-26] MEDS: ASCORBIC ACID 500 MG TABLET GT SCH (08:16)
[2017-02-26] MEDS: FERROUS SULFATE (325 MG) 325 MG/TAB TABLET GT SCH ×3 (08:16→17:05)
[2017-02-26] MEDS: CARVEDILOL 6.25 MG TABLET GT SCH ×2 (08:16→17:04)
[2017-02-26] MEDS: AMLODIPINE BESYLATE 5 MG TABLET GT SCH (08:16)
[2017-02-26] MEDS: HYDROGEL DRESSING 90 GM TUBE TP SCH (08:17)
[2017-02-26] MEDS: ALLOPURINOL 100 MG TABLET GT SCH (08:17)
[2017-02-26] MEDS: NEOMY SULF/BACITRAC ZN/POLY 15 GM TUBE TP SCH (08:17)
[2017-02-26] MEDS: ACIDOPHILUS/BULGARICUS 1 EACH TAB.CHEW GT SCH ×2 (08:17→17:05)
[2017-02-26] MEDS ORDERED: POTASSIUM CL. PREMIX PERIPHER. 50 ML IV SCH (10:00)
--- NOTE | 2017-02-26 11:30 | NUR ---
STRATEGY PLANNING CONSULTANT NOTE 0720: Received patient awake, able to mouth words, able to make needs known. With trache to vent, tolerated settings well. No any respiratory distress noted at this time, noted with moderate amount of thin to thick white secretions when suctioned. Kept HOB elevated. With GT intact, feeding tolerated well, no residuals. With LFA PIV intact. SR 60's on the monitor. VSS. On contact isolation precaution for MRSA blood, maintained and observed. 1030: S/E by Dr. Montez, still hold HD. ordered 1bag of KCl for 3.1. 1045: S/E by Dr. Bose, aware patient still has no HD cath, awaiting for HD cath placement. 1130: No any significant changes ntoed at this time, Will continue to monitor.
--- NOTE | 2017-02-26 11:45 | NUR ---
TRADITIONAL CHINESE HERBALIST NOTE S/E by Elio FAGAN, hold debridement for now for episodes of diarrhea.
[2017-02-26 12:00] VITALS: BP 130/56
[2017-02-26] MEDS: GLYTROL 1,000 ML BAG GT SCH (12:11)
[2017-02-26 16:00] VITALS: BP 126/55
[2017-02-26] MEDS: RENAL NOVASOURCE 1,000 ML BOTTLE GT PRN (17:03)
[2017-02-26] MEDS: COLISTIMETHATE SODIUM 100 MG in IV NS 0.9% 50 ML IV SCH (18:09)
[2017-02-26 20:00] VITALS: BP 123/56
[2017-02-27] VITALS (8 sets, daily range): BP systolic 114–139; BP diastolic 47–82
[2017-02-27] MEDS: HEPARIN SODIUM, PORCINE 5000 UNITS/1 ML VIAL SQ SCH ×2 (00:38→12:08)
[2017-02-27] MEDS: HYDROCODONE/APAP 5/325MG 1 EACH TABLET PO PRN ×2 (00:39→05:46)
[2017-02-27] MEDS: LORAZEPAM 0.5 MG TABLET GT SCH ×4 (00:39→17:26)
[2017-02-27] MEDS: ALBUTEROL FS 2.5 MG/3 ML VIAL.NEB NEB SCH ×6 (03:35→23:43)
[2017-02-27] MEDS: IPRATROPIUM NEB FS 0.5 MG/2.5 ML AMPUL.NEB NEB SCH ×6 (03:35→23:43)
[2017-02-27] MEDS: SIMETHICONE 80 MG TAB.CHEW GT SCH ×3 (05:46→21:12)
[2017-02-27] MEDS: DIPHENOXYLATE HCL/ATROP SULF 1 UDTAB TABLET GT PRN (05:46)
--- NOTE | 2017-02-27 07:18 | NUR ---
RN INITIAL NOTES: Rec'd pt on bed, HOB elevated, mouths words, denies any pain. Pt on mech vent via trach (Shiley 6) w/ ff settings: AC 12, TV 550, FiO2 40%, PEEP 5, saturating at 100%. Suctioned secretions. On telemonitoring, SR w/ HR 63 bpm. Pt has PEG patent & intact on continuous tube feeding Novasource at 35 cc/hr, infusing well, no residuals noted upon checking. Has LFA G20, SL, flushed, patent & intact w/ no signs of infection/ infiltration noted. Call light placed w/in reach. Bed kept low & in locked position. Will turn, reposition & offload heels as per protocol. Isolation prec observed. Will continue to monitor.
[2017-02-27 07:35] LABS: BASOPHILS % (AUTO) 0.1 % (0.0-2.0); EOSINOPHILS # (AUTO) 0.2 /CMM (0.0-0.7); EOSINOPHILS % (AUTO) 2.8 % (0.0-6.0); HEMATOCRIT 26 % (39-51); HEMOGLOBIN 7.8 g/dL (13.5-17.5); LYMPHOCYTES # (AUTO) 0.8 /CMM (0.8-4.8); LYMPHOCYTES % (AUTO) 11.5 % (20.0-44.0); MEAN CORPUSCULAR HEMOGLOBIN 30 PG (26.0-33.0); MEAN CORPUSCULAR HGB CONC 31 g/dl (31.0-36.0); MEAN CORPUSCULAR VOLUME 98 fL (80-96); MONOCYTES # (AUTO) 0.3 /CMM (0.1-1.30); MONOCYTES % (AUTO) 5.2 % (2.0-12.0); NEUTROPHILS # (AUTO) 5.4 /CMM (1.8-8.9); NEUTROPHILS % (AUTO) 80.4 % (43.0-81.0); PLATELET COUNT (AUTO) 128 /CMM (150-450); RDW COEFFICIENT OF VARIATION 19.6 (11.5-15.0); RED BLOOD CELL COUNT(AUTO) 2.62 MIL/uL (4.5-6.0); WHITE BLOOD COUNT (AUTO) 6.7 K/uL (4.3-11.0)
[2017-02-27 07:49] LABS: CALCIUM, SERUM 7.8 mg/dL (8.5-10.1); CREATININE 3.9 mg/dL (0.6-1.3)
[2017-02-27] MEDS: COLCHICINE 0.6 MG TABLET GT SCH (08:49)
[2017-02-27] MEDS: RIFAMPIN 300 MG CAPSULE PO SCH (08:49)
[2017-02-27] MEDS: VIT B CMPLX 3/FA/VIT C/BIOTIN 1 TAB TABLET GT SCH (08:49)
[2017-02-27] MEDS: ASCORBIC ACID 500 MG TABLET GT SCH (08:49)
[2017-02-27] MEDS: PROSOURCE / PROSTAT (PYXIS) 30 ML UDC GT SCH ×2 (08:49→17:24)
[2017-02-27] MEDS: ACIDOPHILUS/BULGARICUS 1 EACH TAB.CHEW GT SCH ×2 (08:49→17:25)
[2017-02-27] MEDS: AMLODIPINE BESYLATE 5 MG TABLET GT SCH (08:49)
[2017-02-27] MEDS: PANTOPRAZOLE 40 MG VIAL IV SCH (08:49)
[2017-02-27] MEDS: BENAZEPRIL HCL 20 MG TABLET GT SCH ×2 (08:49→17:24)
[2017-02-27] MEDS: DOXAZOSIN MESYLATE (1 MG) 1 MG TABLET GT SCH ×2 (08:50→17:24)
[2017-02-27] MEDS: CARVEDILOL 6.25 MG TABLET GT SCH ×2 (08:50→17:25)
[2017-02-27] MEDS: FERROUS SULFATE (325 MG) 325 MG/TAB TABLET GT SCH ×3 (08:51→17:25)
[2017-02-27] MEDS: ESCITALOPRAM OXALATE (10 MG) 10 MG TABLET GT SCH ×2 (08:51→17:25)
[2017-02-27] MEDS: ATORVASTATIN 10 MG TABLET GT SCH (08:51)
[2017-02-27] MEDS: ALLOPURINOL 100 MG TABLET GT SCH (08:51)
[2017-02-27] MEDS: SEVELAMER CARBONATE 0.8 GM POWD.PACK GT SCH ×3 (08:51→17:24)
[2017-02-27] MEDS: ISOSORBIDE DINITRATE (10MG) 10 MG TABLET GT SCH ×3 (08:51→17:24)
[2017-02-27] MEDS: FAMOTIDINE (20 MG) 20 MG TABLET GT SCH (08:51)
[2017-02-27] MEDS: HYDROGEL DRESSING 90 GM TUBE TP SCH (08:52)
[2017-02-27] MEDS: NEOMY SULF/BACITRAC ZN/POLY 15 GM TUBE TP SCH (08:52)
[2017-02-27 09:14] LABS: POTASSIUM 2.8 mmol/L (3.5-5.1)
[2017-02-27] MEDS ORDERED: SECONDARY IV SET 1 EA INFUS.SET MC ONE (10:24)
[2017-02-27] MEDS ORDERED: IV NS 0.9% 250 ML IV ONE (10:28)
[2017-02-27] MEDS ORDERED: IV SET PRIMARY PUMP SET 1 EA INFUS.SET MC ONE (10:28)
[2017-02-27] MEDS: POTASSIUM CL. PREMIX PERIPHER. 50 ML IV SCH ×4 (10:29→13:39)
[2017-02-27] MEDS ORDERED: POTASSIUM CHLORIDE 20 MEQ TAB.PRT.SR PO SCH (10:30)
[2017-02-27] MEDS: POTASSIUM CHLORIDE 20 MEQ POWDER PACKET GT SCH (11:54)
--- NOTE | 2017-02-27 18:58 | NUR ---
RN CLOSING NOTES: No acute changes noted w/in shift. Pt tolerated prescribed mech vent settings, saturating at 100%. Suctioned secretions. On telemonitoring, still SR w/ HR 64 bpm. PEG kept patent & intact, continuous tube feeding Novasource at 35 cc/hr, tolerated well, no residuals noted. LFA G20, kept patent & intact w/ no signs of infection/ infiltration noted. Lorazepam meds not given as pt is not agitated, observed to be more sleepy but easily arousable. Call light placed w/in reach. Bed kept low & in locked position. Wound care done. Turned, repositioned, & offloaded heels. Isolation prec observed. Will endorse to PM RN for MAVERICK.
[2017-02-28] VITALS (7 sets, daily range): BP systolic 101–121; BP diastolic 41–76
[2017-02-28] MEDS: RENAL NOVASOURCE 1,000 ML BOTTLE GT PRN (01:27)
[2017-02-28] MEDS: HEPARIN SODIUM, PORCINE 5000 UNITS/1 ML VIAL SQ SCH ×2 (01:29→13:20)
[2017-02-28] MEDS: IPRATROPIUM NEB FS 0.5 MG/2.5 ML AMPUL.NEB NEB SCH ×6 (03:41→23:40)
[2017-02-28] MEDS: ALBUTEROL FS 2.5 MG/3 ML VIAL.NEB NEB SCH ×6 (03:41→23:40)
[2017-02-28] MEDS: LORAZEPAM 0.5 MG TABLET GT SCH ×4 (05:56→18:00)
[2017-02-28] MEDS: SIMETHICONE 80 MG TAB.CHEW GT SCH ×3 (05:56→21:30)
[2017-02-28] MEDS: COLISTIMETHATE SODIUM 100 MG in IV NS 0.9% 50 ML IV SCH (06:23)
[2017-02-28 06:54] LABS: BASOPHILS % (AUTO) 0.2 % (0.0-2.0); EOSINOPHILS # (AUTO) 0.2 /CMM (0.0-0.7); EOSINOPHILS % (AUTO) 2.5 % (0.0-6.0); HEMATOCRIT 27 % (39-51); HEMOGLOBIN 8.4 g/dL (13.5-17.5); LYMPHOCYTES # (AUTO) 0.6 /CMM (0.8-4.8); LYMPHOCYTES % (AUTO) 7.1 % (20.0-44.0); MEAN CORPUSCULAR HEMOGLOBIN 30 PG (26.0-33.0); MEAN CORPUSCULAR HGB CONC 31 g/dl (31.0-36.0); MEAN CORPUSCULAR VOLUME 96 fL (80-96); MONOCYTES # (AUTO) 0.3 /CMM (0.1-1.30); MONOCYTES % (AUTO) 3.6 % (2.0-12.0); NEUTROPHILS # (AUTO) 6.9 /CMM (1.8-8.9); NEUTROPHILS % (AUTO) 86.6 % (43.0-81.0); PLATELET COUNT (AUTO) 152 /CMM (150-450); RDW COEFFICIENT OF VARIATION 19.3 (11.5-15.0); RED BLOOD CELL COUNT(AUTO) 2.81 MIL/uL (4.5-6.0); WHITE BLOOD COUNT (AUTO) 7.9 K/uL (4.3-11.0)
[2017-02-28 07:08] LABS: ALBUMIN 1.7 g/dL (3.4-5.0); BILIRUBIN,TOTAL 0.4 mg/dL (0.2-1.0); CALCIUM, SERUM 8.1 mg/dL (8.5-10.1); CREATININE 4.7 mg/dL (0.6-1.3); MAGNESIUM 2.3 mg/dL (1.8-2.4); POTASSIUM 3.4 mmol/L (3.5-5.1); TOTAL PROTEIN, SERUM 5.1 g/dL (6.4-8.2)
--- NOTE | 2017-02-28 07:20 | NUR ---
RN INITIAL NOTES: Rec'd pt on bed, HOB elevated, mouths words, denies any pain. Pt on mech vent via trach (Shiley 6) w/ ff settings: AC 12, TV 550, FiO2 40%, PEEP 5, saturating at 100%. Suctioned secretions. On telemonitoring, SR w/ occasional PVCs HR 69 bpm. Pt has PEG patent & intact on continuous tube feeding Novasource at 35 cc/hr, infusing well, no residuals noted upon checking. Has LFA G20, SL, flushed, patent & intact w/ no signs of infection/ infiltration noted. Call light placed w/in reach. Bed kept low & in locked position. Will turn, reposition & offload heels as per protocol. Isolation prec observed. Will continue to monitor.
--- NOTE | 2017-02-28 08:30 | NUR ---
RN NOTES: Pt seen & examined by Dr. Bose.
[2017-02-28] MEDS: ASCORBIC ACID 500 MG TABLET GT SCH (08:49)
[2017-02-28] MEDS: ATORVASTATIN 10 MG TABLET GT SCH (08:49)
[2017-02-28] MEDS: PROSOURCE / PROSTAT (PYXIS) 30 ML UDC GT SCH ×2 (08:49→18:15)
[2017-02-28] MEDS: RIFAMPIN 300 MG CAPSULE PO SCH (08:49)
[2017-02-28] MEDS: POTASSIUM CHLORIDE 20 MEQ POWDER PACKET GT SCH (08:49)
[2017-02-28] MEDS: ACIDOPHILUS/BULGARICUS 1 EACH TAB.CHEW GT SCH ×2 (08:49→18:16)
[2017-02-28] MEDS: PANTOPRAZOLE 40 MG VIAL IV SCH (08:49)
[2017-02-28] MEDS: VIT B CMPLX 3/FA/VIT C/BIOTIN 1 TAB TABLET GT SCH (08:50)
[2017-02-28] MEDS: FAMOTIDINE (20 MG) 20 MG TABLET GT SCH (08:50)
[2017-02-28] MEDS: FERROUS SULFATE (325 MG) 325 MG/TAB TABLET GT SCH ×3 (08:50→18:16)
[2017-02-28] MEDS: DOXAZOSIN MESYLATE (1 MG) 1 MG TABLET GT SCH ×2 (08:50→17:00)
[2017-02-28] MEDS: ALLOPURINOL 100 MG TABLET GT SCH (08:51)
[2017-02-28] MEDS: ESCITALOPRAM OXALATE (10 MG) 10 MG TABLET GT SCH ×2 (08:51→18:15)
[2017-02-28] MEDS: SEVELAMER CARBONATE 0.8 GM POWD.PACK GT SCH ×3 (08:51→18:16)
[2017-02-28] MEDS: COLCHICINE 0.6 MG TABLET GT SCH (08:51)
[2017-02-28] MEDS: Z GUARD REMEDY 2 OZ OINT TP PRN (08:52)
[2017-02-28] MEDS: NEOMY SULF/BACITRAC ZN/POLY 15 GM TUBE TP SCH (08:52)
[2017-02-28] MEDS: AMLODIPINE BESYLATE 5 MG TABLET GT SCH (08:54)
--- NOTE | 2017-02-28 09:00 | NUR ---
RN NOTES: Pt has loose watery bowel movement. MD made aware, agreed to put Flexiseal w/ orders to do another C.diff exam.
[2017-02-28] MEDS: BENAZEPRIL HCL 20 MG TABLET GT SCH ×2 (10:23→17:00)
[2017-02-28] MEDS: ISOSORBIDE DINITRATE (10MG) 10 MG TABLET GT SCH ×3 (10:24→17:00)
[2017-02-28] MEDS: CARVEDILOL 6.25 MG TABLET GT SCH ×2 (10:24→17:00)
[2017-02-28] MEDS: HYDROGEL DRESSING 90 GM TUBE TP SCH (10:40)
--- NOTE | 2017-02-28 17:30 | NUR ---
RN NOTES: Dr. Nguyen Amador did HD cath placement on L Subclavian. Noted mech vent kept on alarming. Pt assessed, saturating at 100%, not in any distress. Informed RT on duty, they checked pt trach said that MD might punctured the trach balloon. Called Dr. Nunez ([facility]), ordered to do trach change c/o RT. RT notified c/o [place]. Stat CXR done post HD placement.
--- NOTE | 2017-02-28 19:10 | NUR ---
RN CLOSING NOTES: Pt for trach change c/o RT on duty. On telemonitoring, still SR w/ occasional PVCs HR 62 bpm. PEG kept patent & intact, continuous tube feeding Novasource at 35 cc/hr, tolerated well, no residuals noted. LFA G20, kept patent & intact w/ no signs of infection/ infiltration noted. Lorazepam meds not given as pt is not agitated, observed to be more sleepy but easily arousable. Call light placed w/in reach. Bed kept low & in locked position. Wound care done. Turned, repositioned, & offloaded heels. Isolation prec observed. Flexiseal kept patent and intact. Will endorse to PM RN for MAVERICK.
--- NOTE | 2017-02-28 19:20 | NUR ---
RN NOTES RECEIVED PT AWAKE ON BED FOLLOWS COMMAND. ON TRACH SHILEY 6 CONNECTED TO VENT AC 12 TV 550 FIO2 40% PEEP 5 TOLERATED WELL SATING 100% RT AWARE REGARDING TRACH CHANGE. ON TELE MONITOR REVEAL SR WITH PVC'S HR 73. GTF NOVASOURCE @ 35 CC/HR RIKKI.PATENCY CHECKED WITH ZERO RESIDUAL.AFEBRILE. WILL CONITNUE TO MONITOR VS AND LAB VALUE IV SITE ON LFA G 20 INTACT AND PATENT. KEPT PT CLEAN AND COMFORTABLE IN BED. WILL CONTINUE TO MONITOR.
--- NOTE | 2017-02-28 20:32 | NUR ---
[facility] WITH NOTED SETTINGS. VENT ALARM CHECKED AND AUDIBLE . VENT PLUGGED INTO RED OUTLET. TRACH SECURE IN AND IN PROPER POSITION. CUFF CHECKED RUBBER GOODS FINISHER. SXN MODERATE AMOUNT OF YELLOWISH THICK SECRETIONS. AMBU BAG @ BEDSIDE. NO RESPIRATORY DISTRESS AT THIS TIME. WILL CONTINUE TO MONITOR.
--- NOTE | 2017-02-28 21:00 | NUR ---
TRACH CHANGE DONE PER MD'S ORDER WITH THE SIZE OF SHILEY 6 DCT. SUCTION SMALL AMOUNT OF YELLOWISH THICK SECRETIONS. NO RESPIRATORY DISTRESS AT THIS TIME. SPO2 OF 100%. WENDY MCKEE NOTED
--- NOTE | 2017-02-28 21:03 | NUR ---
RN NOTES TRACH CHANGED DONE BY TWO RT. TOLERATED WELL,NO ACUTE RESP DISTRESS SATING WELL.
[2017-03-01] VITALS (7 sets, daily range): BP systolic 114–130; BP diastolic 40–63
[2017-03-01] MEDS: LORAZEPAM 0.5 MG TABLET GT SCH ×4 (00:59→17:46)
[2017-03-01] MEDS: HEPARIN SODIUM, PORCINE 5000 UNITS/1 ML VIAL SQ SCH (01:00)
[2017-03-01] MEDS ORDERED: METOCLOPRAMIDE HCL 10 MG/2 ML VIAL ONE (01:47)
--- NOTE | 2017-03-01 01:50 | NUR ---
RN NOTES PT NOT TOLERATING FEEDING WITH VERY HIGH RESIDUAL [id number] CC. BOWEL CONTENT ASPIRATED HAD A SLIGHT ORANGE TINGE WATER.
--- NOTE | 2017-03-01 01:55 | NUR ---
RN NOTES GTF HELD PER PROTOCOL INFORMED ZAK WITH ORDER TO HOLD FEEDING AND GIVE REGLAN 10 MG Q6H IVP.
[2017-03-01] MEDS ORDERED: METOCLOPRAMIDE HCL 10 MG/2 ML VIAL IV SCH (02:00)
[2017-03-01] MEDS: IPRATROPIUM NEB FS 0.5 MG/2.5 ML AMPUL.NEB NEB SCH ×6 (03:32→23:06)
[2017-03-01] MEDS: ALBUTEROL FS 2.5 MG/3 ML VIAL.NEB NEB SCH ×6 (03:32→23:06)
--- NOTE | 2017-03-01 04:30 | NUR ---
RN NOTES AFTER GIVING REGLAN 10 MG IVP RECHECKED RESIDUAL AFTER 2 HOURS PT RESIDUAL= 700 CC OF GASTRIC CONTENT. INFORMED ZAK WITH ORDER TO CONTINUE TO HELD FEEDING.
[2017-03-01] MEDS: SIMETHICONE 80 MG TAB.CHEW GT SCH ×3 (06:16→21:20)
[2017-03-01 06:29] LABS: BASOPHILS % (AUTO) 0.3 % (0.0-2.0); EOSINOPHILS # (AUTO) 0.1 /CMM (0.0-0.7); EOSINOPHILS % (AUTO) 2.4 % (0.0-6.0); HEMATOCRIT 26 % (39-51); HEMOGLOBIN 8.1 g/dL (13.5-17.5); LYMPHOCYTES # (AUTO) 0.6 /CMM (0.8-4.8); LYMPHOCYTES % (AUTO) 9.3 % (20.0-44.0); MEAN CORPUSCULAR HEMOGLOBIN 30 PG (26.0-33.0); MEAN CORPUSCULAR HGB CONC 31 g/dl (31.0-36.0); MEAN CORPUSCULAR VOLUME 97 fL (80-96); MONOCYTES # (AUTO) 0.3 /CMM (0.1-1.30); MONOCYTES % (AUTO) 4.4 % (2.0-12.0); NEUTROPHILS # (AUTO) 5.2 /CMM (1.8-8.9); NEUTROPHILS % (AUTO) 83.6 % (43.0-81.0); PLATELET COUNT (AUTO) 153 /CMM (150-450); RDW COEFFICIENT OF VARIATION 20.1 (11.5-15.0); RED BLOOD CELL COUNT(AUTO) 2.68 MIL/uL (4.5-6.0); WHITE BLOOD COUNT (AUTO) 6.2 K/uL (4.3-11.0)
[2017-03-01 06:51] LABS: CALCIUM, SERUM 8.4 mg/dL (8.5-10.1); CREATININE 5.2 mg/dL (0.6-1.3); POTASSIUM 3.2 mmol/L (3.5-5.1)
--- NOTE | 2017-03-01 07:20 | NUR ---
RN NOTES PT ENDORSED TO MORNING SHIFT REGARDING THE GT RESIDUAL ABOVE 400CC/HR STILL NO VOMITING NOTED. MD AWARE GTF STILL ON HELD. FLEXISEAL WITH 100 CC GREENISH AND LIQUIDY. TRACH CHANGE AND TOLERATED WELL. SATING 100% KEPT PT CLEAN AND COMFORTABLE IN BED
--- NOTE | 2017-03-01 07:40 | NUR ---
RN INITIAL NOTE RECEIVED PT FROM PM NURSE. PT A/O 1 MOUTH WORDS. HARJINDER #6 AC 12 TV550 [id number]% PEEP 5 GT FEEDING HELD DUE TO PM RESIDUAL. NO RESIDUAL ON MY AM SHIFT PLACEMENT CK. IV LFA #20 G PATENT FLUSHED AND INTACT, L SUBCLAVIAN HD CATH HD TODAY. WILL CONTINUE TO MONITOR CLOSELY. PT CLEAN WARM AND DRY.
[2017-03-01] MEDS: ISOSORBIDE DINITRATE (10MG) 10 MG TABLET GT SCH ×3 (09:00→17:44)
[2017-03-01] MEDS: CARVEDILOL 6.25 MG TABLET GT SCH ×2 (09:00→17:43)
[2017-03-01] MEDS: BENAZEPRIL HCL 20 MG TABLET GT SCH ×2 (09:00→17:45)
[2017-03-01] MEDS: AMLODIPINE BESYLATE 5 MG TABLET GT SCH (09:00)
[2017-03-01] MEDS: PROSOURCE / PROSTAT (PYXIS) 30 ML UDC GT SCH ×2 (09:15→17:42)
[2017-03-01] MEDS: RIFAMPIN 300 MG CAPSULE PO SCH (09:15)
[2017-03-01] MEDS: ESCITALOPRAM OXALATE (10 MG) 10 MG TABLET GT SCH ×2 (09:15→17:42)
[2017-03-01] MEDS: FERROUS SULFATE (325 MG) 325 MG/TAB TABLET GT SCH ×3 (09:15→17:42)
[2017-03-01] MEDS: ACIDOPHILUS/BULGARICUS 1 EACH TAB.CHEW GT SCH ×2 (09:16→17:42)
[2017-03-01] MEDS: ASCORBIC ACID 500 MG TABLET GT SCH (09:16)
[2017-03-01] MEDS: ATORVASTATIN 10 MG TABLET GT SCH (09:16)
[2017-03-01] MEDS: DOXAZOSIN MESYLATE (1 MG) 1 MG TABLET GT SCH ×2 (09:17→17:44)
[2017-03-01] MEDS: ALLOPURINOL 100 MG TABLET GT SCH (09:18)
[2017-03-01] MEDS: VIT B CMPLX 3/FA/VIT C/BIOTIN 1 TAB TABLET GT SCH (09:18)
[2017-03-01] MEDS: FAMOTIDINE (20 MG) 20 MG TABLET GT SCH (09:18)
[2017-03-01] MEDS: SEVELAMER CARBONATE 0.8 GM POWD.PACK GT SCH ×3 (09:19→17:42)
[2017-03-01] MEDS: HYDROGEL DRESSING 90 GM TUBE TP SCH (09:19)
[2017-03-01] MEDS: NEOMY SULF/BACITRAC ZN/POLY 15 GM TUBE TP SCH (09:19)
--- NOTE | 2017-03-01 09:22 | NUR ---
RN NOTE PT WILL HAVE HD TODAY HOLDING B/P MEDICATIONS.
[2017-03-01] MEDS: COLCHICINE 0.6 MG TABLET GT SCH (09:40)
[2017-03-01] MEDS: POTASSIUM CHLORIDE 20 MEQ POWDER PACKET GT SCH (09:40)
[2017-03-01] MEDS: PANTOPRAZOLE 40 MG VIAL IV SCH (09:40)
--- NOTE | 2017-03-01 12:15 | NUR ---
RN NOTE ATIVAN NOT GIVEN PT CALM NO NEED FOR MED.
--- NOTE | 2017-03-01 17:30 | NUR ---
RN NOTE CALL PHARMACY REGARDING COLISTIMETHATE SODIUM IV NOT IN PT CUPBOARD.WILL SEND TECH TO BRING.
[2017-03-01] MEDS: RENAL NOVASOURCE 1,000 ML BOTTLE GT PRN (17:45)
--- NOTE | 2017-03-01 18:30 | NUR ---
RN NOTE CALLED PHARMACY AGAIN ABOUT IV MEDICATION WILL REPORT TO PM NURSE.
--- NOTE | 2017-03-01 19:34 | NUR ---
RN CLOSING NOTE PT A/O 1 RESPONDS TO STIMULI.. SHILEY #6 AC 12 TV550 [id number]% PEEP 5. GT STARTED NOVASOURCE 35 ML/HR. NO RESIDUAL THROUGH OUT SHIFT. IV LFA #20 G PATENT FLUSHED AND INTACT, L SUBCLAVIAN HD INTACT. PT CLEAN WARM AND DRY. REPORT GIVEN TO PM NURSE FOR MAVERICK.
[2017-03-01] MEDS: COLISTIMETHATE SODIUM 100 MG in IV NS 0.9% 50 ML IV SCH (19:52)
--- NOTE | 2017-03-01 19:55 | NUR ---
RN NOTES RECEIVED PT ASLEEP ON BED FOLLOWS COMMAND. RESPONSIVE TO STIMULI AOX1. WITH TRACH SHILEY 6 CONNECTED TO VENT AC 12 TV 550 FIO2 40% PEEP 5 TOLERATED WELL. BILATERAL LUNG SOUND WITH RONCHI. SUCTIONED WITH MOD. AMT OF YELLOW THICK SECRETION. NO SOB OR ACUTE RESP DISTRESS ON TELE MONITOR REVEAL A-PACING WITH PVC'S HR 70. GTF NOVASOURCE @ 35 CC/HR HELD. PATENCY CHECKED WITH 400CC RESIDUAL WITH A LOT OF AIR NOTED. FEEDING HELD AT HIS TIME. AND WILL RECHECKED AFTER 2 HOURS. AFEBRILE. WILL CONTINUE TO MONITOR VS AND LAB VALUE IV SITE ON LFA G 20 INTACT AND PATENT. OFFLOADED EXT WITH PILLOWS, REDUCED PRESSURE TO BONY PROMINENCE AREA. KEPT PT CLEAN AND COMFORTABLE IN BED. WILL CONTINUE TO MONITOR.
--- NOTE | 2017-03-01 22:20 | NUR ---
RN NOTES RECEHECKED GT RESIDUAL WITH 100 CC MILK AND SLIMMY CONTENT. RESUME FEEDING ORDERED. WILL CONTINUE TO MONITOR.
[2017-03-02] VITALS (10 sets, daily range): BP systolic 99–146; BP diastolic 37–65
--- NOTE | 2017-03-02 00:30 | NUR ---
RN NOTES RECHECKED PT GT RESIDUAL WITH 300 CC OF SLIMY MILK CONTENT. HELD FEEDING FOR 2HOURS FOR THE SECOND TIME AND WE WILL RECHECKED IT AGAIN LATER. NO N/V BUT WITH LIQUID FORM OF STOOL. WILL CONTINUE TO MONITOR.
--- NOTE | 2017-03-02 02:30 | NUR ---
RN NOTES RECHECKED PT GT RESIDUAL WITH 100 CC AMOUNT. RESUME FEEDING AND WILL RECHECKED IT AGAIN AFTER 2 HOURS. WILL CONTINUE TO MONITOR. PT ASLEEP AT THIS TIME
[2017-03-02] MEDS: IPRATROPIUM NEB FS 0.5 MG/2.5 ML AMPUL.NEB NEB SCH ×5 (02:51→23:26)
[2017-03-02] MEDS: ALBUTEROL FS 2.5 MG/3 ML VIAL.NEB NEB SCH ×5 (02:52→23:26)
--- NOTE | 2017-03-02 04:30 | NUR ---
RN NOTES PT ASLEEP WELL ON BED GT INTACT AND PATENT. GT RESIDUAL CHECKED WITH AMOUTH OF 80 CC CONTINUE FEEDING ORDERED WILL CONTINUE TO MONITOR.
[2017-03-02] MEDS: SIMETHICONE 80 MG TAB.CHEW GT SCH ×3 (05:17→21:17)
[2017-03-02] MEDS: LORAZEPAM 0.5 MG TABLET GT SCH ×4 (06:00→18:00)
--- NOTE | 2017-03-02 06:40 | NUR ---
RN NOTES PT ASLEEP WELL ON BED ATIVAN HELD DUE TO PT IS BEEN SLEEPING NO ANXIETY NOTED. AFEBRILE. NO ACUTE RESP DISTRESS. TRACH AND VENT SETTING TOLERATED WELL. TELE MONITOR REVEALS SR HR 69. GTF TOLERATED AT THIS TIME. BEDBATH DONE KEPT PT CLEAN AND COMFORTABLE IN BED. ALL DUE MEDICINE TOLERATED WELL. TURNED AND REPOSISITONE TX DONE ORDERED OFFLOADED EXT WITH PILLOWS. REDUCED PRESSURE TO BONY PROMINENCE AREA. WILL CONTINUE TO MONITOR.
[2017-03-02 06:41] LABS: BASOPHILS % (AUTO) 0.6 % (0.0-2.0); EOSINOPHILS # (AUTO) 0.1 /CMM (0.0-0.7); EOSINOPHILS % (AUTO) 2.2 % (0.0-6.0); HEMATOCRIT 28 % (39-51); HEMOGLOBIN 8.6 g/dL (13.5-17.5); LYMPHOCYTES # (AUTO) 0.6 /CMM (0.8-4.8); LYMPHOCYTES % (AUTO) 8.7 % (20.0-44.0); MEAN CORPUSCULAR HEMOGLOBIN 30 PG (26.0-33.0); MEAN CORPUSCULAR HGB CONC 31 g/dl (31.0-36.0); MEAN CORPUSCULAR VOLUME 96 fL (80-96); MONOCYTES # (AUTO) 0.3 /CMM (0.1-1.30); MONOCYTES % (AUTO) 3.9 % (2.0-12.0); NEUTROPHILS # (AUTO) 5.6 /CMM (1.8-8.9); NEUTROPHILS % (AUTO) 84.6 % (43.0-81.0); PLATELET COUNT (AUTO) 135 /CMM (150-450); RDW COEFFICIENT OF VARIATION 19.5 (11.5-15.0); RED BLOOD CELL COUNT(AUTO) 2.87 MIL/uL (4.5-6.0); WHITE BLOOD COUNT (AUTO) 6.6 K/uL (4.3-11.0)
[2017-03-02 07:27] LABS: CALCIUM, SERUM 8.3 mg/dL (8.5-10.1); CREATININE 4.3 mg/dL (0.6-1.3); MAGNESIUM 2.4 mg/dL (1.8-2.4); PHOSPHORUS 2.8 mg/dL (2.5-4.9)
[2017-03-02 07:39] LABS: POTASSIUM 2.7 mmol/L (3.5-5.1)
[2017-03-02] MEDS ORDERED: POTASSIUM CHLORIDE 20 MEQ POWDER PACKET GT ONE (08:30)
[2017-03-02] MEDS: BENAZEPRIL HCL 20 MG TABLET GT SCH ×2 (09:00→17:00)
[2017-03-02] MEDS: AMLODIPINE BESYLATE 5 MG TABLET GT SCH (09:00)
[2017-03-02] MEDS: CARVEDILOL 6.25 MG TABLET GT SCH ×2 (09:00→17:00)
[2017-03-02] MEDS: ESCITALOPRAM OXALATE (10 MG) 10 MG TABLET GT SCH ×2 (09:16→17:00)
[2017-03-02] MEDS: COLCHICINE 0.6 MG TABLET GT SCH (09:16)
[2017-03-02] MEDS: DOXAZOSIN MESYLATE (1 MG) 1 MG TABLET GT SCH ×2 (09:16→17:00)
[2017-03-02] MEDS: ACIDOPHILUS/BULGARICUS 1 EACH TAB.CHEW GT SCH ×2 (09:17→17:00)
[2017-03-02] MEDS: POTASSIUM CHLORIDE 20 MEQ POWDER PACKET GT SCH (09:17)
[2017-03-02] MEDS: VIT B CMPLX 3/FA/VIT C/BIOTIN 1 TAB TABLET GT SCH (09:17)
[2017-03-02] MEDS: ISOSORBIDE DINITRATE (10MG) 10 MG TABLET GT SCH ×3 (09:18→17:00)
[2017-03-02] MEDS: RIFAMPIN 300 MG CAPSULE PO SCH (09:19)
[2017-03-02] MEDS: ASCORBIC ACID 500 MG TABLET GT SCH (09:19)
[2017-03-02] MEDS: PANTOPRAZOLE 40 MG VIAL IV SCH (09:19)
[2017-03-02] MEDS: FERROUS SULFATE (325 MG) 325 MG/TAB TABLET GT SCH ×3 (09:20→17:00)
[2017-03-02] MEDS: FAMOTIDINE (20 MG) 20 MG TABLET GT SCH (09:20)
[2017-03-02] MEDS: ATORVASTATIN 10 MG TABLET GT SCH (09:20)
[2017-03-02] MEDS: ALLOPURINOL 100 MG TABLET GT SCH (09:20)
[2017-03-02] MEDS: SEVELAMER CARBONATE 0.8 GM POWD.PACK GT SCH ×3 (09:21→17:00)
[2017-03-02] MEDS: HYDROGEL DRESSING 90 GM TUBE TP SCH (09:23)
[2017-03-02] MEDS: PROSOURCE / PROSTAT (PYXIS) 30 ML UDC GT SCH ×2 (09:23→17:00)
[2017-03-02] MEDS: NEOMY SULF/BACITRAC ZN/POLY 15 GM TUBE TP SCH (09:23)
[2017-03-02] MEDS ORDERED: EPOETIN ALFA (10,000 UNIT) 10,000 UNIT/ML VIAL IV ONE (12:00)
[2017-03-02] MEDS ORDERED: HEPARIN SODIUM, PORCINE 1,000 UNIT/ML VIAL ONE (16:36)
[2017-03-02] MEDS ORDERED: LIDOCAINE HCL/PF 1% 30 ML SDV ONE (16:37)
[2017-03-02] MEDS ORDERED: ROCURONIUM BROMIDE 50 MG/5 ML ONE (16:57)
--- NOTE | 2017-03-02 17:33 | NUR ---
RT NOTE: ASSISTED WITH TRANSPORTING PATIENT FROM OR TO ROOM 120 WITH NO PROBLEMS VIA AMBU BAG. PLACED BACK ON PB 840 VENT WITH NOTED SETTINGS. ALARMS SET AND AUDIBLE. VENT PLUGGED INTO RED OUTLET. AMBU BAG AT [facility].
[2017-03-02] MEDS ORDERED: ANESTHESIA TRAY IN PYXIS 1 EA TRAY MC ONE (18:13)
--- NOTE | 2017-03-02 19:22 | NUR ---
patient stable .noted laying in bed .report given to incoming shift .
--- NOTE | 2017-03-02 19:35 | NUR ---
RN NOTES PT ASLEEP ON BED AOX 1-2 FOLLOWS COMMAND. RESPONSIVE TO STIMULI. WITH TRACH SHILEY 6 CONNECTED TO VENT AC 12 TV 550 FIO2 40% PEEP 5 TOLERATED WELL. NO ACUTE RESP DISTRESS BILATERAL LUNG SOUND WITH RONCHI. SUCTIONED WITH MOD. AMT OF YELLOW THICK SECRETION. TELE MONITOR REVEAL SR WITH PVC'S HR 76. GTF NOVASOURCE @ 35 CC/HR . PATENCY CHECKED WITH 70CC RESIDUAL WITH A LOT OF AIR NOTED. FEEDING HELD AT HIS TIME, REMOVED AIR. AFEBRILE. IV SITE ON LFA G 20 INTACT AND PATENT. OFFLOADED EXT WITH PILLOWS, REDUCED PRESSURE TO BONY PROMINENCE AREA. TURNED AND REPOSITIONED PT. KEPT CLEAN AND COMFORTABLE IN BED. WILL CONTINUE TO MONITOR.
[2017-03-03] VITALS (7 sets, daily range): BP systolic 90–109; BP diastolic 45–75
[2017-03-03] MEDS: ALBUTEROL FS 2.5 MG/3 ML VIAL.NEB NEB SCH ×6 (03:28→23:09)
[2017-03-03] MEDS: IPRATROPIUM NEB FS 0.5 MG/2.5 ML AMPUL.NEB NEB SCH ×6 (03:28→23:09)
[2017-03-03] MEDS: LORAZEPAM 0.5 MG TABLET GT SCH ×2 (05:42)
[2017-03-03] MEDS: SIMETHICONE 80 MG TAB.CHEW GT SCH ×3 (05:53→21:49)
[2017-03-03] MEDS: RENAL NOVASOURCE 1,000 ML BOTTLE GT PRN (06:04)
[2017-03-03] MEDS: COLISTIMETHATE SODIUM 100 MG in IV NS 0.9% 50 ML IV SCH (06:08)
--- NOTE | 2017-03-03 07:04 | NUR ---
RN NOTES PT ASLEEP WELL ON BED. REMAINED AOX 1 RESPONSIVE TO STIMULI. TRACH AND VENT TOLERATED WELL SATING 100%. FLEXISEAL CHANGED WITH YELLOW COLOR LIQUID CONTENT. GTF TOLERATED AT THIS TIME. WITH ZERO RESIDUAL. ALL DUE MEDICINE TOLERATED WELL NO N.V./D. TX DONE ORDERED. OFFLOADED EXT WITH PILLOWS ALL THE TIME. WILL ENDORSED CONTINUITY OF CARE TO AM NURSE.
[2017-03-03] MEDS: ATORVASTATIN 10 MG TABLET GT SCH (08:13)
[2017-03-03] MEDS: COLCHICINE 0.6 MG TABLET GT SCH (08:14)
[2017-03-03] MEDS: ALLOPURINOL 100 MG TABLET GT SCH (08:14)
[2017-03-03] MEDS: VIT B CMPLX 3/FA/VIT C/BIOTIN 1 TAB TABLET GT SCH (08:14)
[2017-03-03] MEDS: POTASSIUM CHLORIDE 20 MEQ POWDER PACKET GT SCH (08:14)
[2017-03-03] MEDS: RIFAMPIN 300 MG CAPSULE PO SCH (08:14)
[2017-03-03] MEDS: PANTOPRAZOLE 40 MG VIAL IV SCH (08:14)
[2017-03-03] MEDS: ACIDOPHILUS/BULGARICUS 1 EACH TAB.CHEW GT SCH ×2 (08:14→16:26)
[2017-03-03] MEDS: PROSOURCE / PROSTAT (PYXIS) 30 ML UDC GT SCH ×2 (08:14→16:26)
[2017-03-03] MEDS: FERROUS SULFATE (325 MG) 325 MG/TAB TABLET GT SCH ×3 (08:14→16:26)
[2017-03-03] MEDS: ASCORBIC ACID 500 MG TABLET GT SCH (08:15)
[2017-03-03] MEDS: ESCITALOPRAM OXALATE (10 MG) 10 MG TABLET GT SCH ×2 (08:15→16:26)
[2017-03-03] MEDS: FAMOTIDINE (20 MG) 20 MG TABLET GT SCH (08:15)
[2017-03-03] MEDS: NEOMY SULF/BACITRAC ZN/POLY 15 GM TUBE TP SCH (08:16)
[2017-03-03] MEDS: HYDROGEL DRESSING 90 GM TUBE TP SCH (08:16)
[2017-03-03] MEDS: CARVEDILOL 6.25 MG TABLET GT SCH ×2 (08:18→16:28)
[2017-03-03] MEDS: DOXAZOSIN MESYLATE (1 MG) 1 MG TABLET GT SCH ×2 (08:18→16:27)
[2017-03-03] MEDS: ISOSORBIDE DINITRATE (10MG) 10 MG TABLET GT SCH ×3 (08:18→16:28)
[2017-03-03] MEDS: BENAZEPRIL HCL 20 MG TABLET GT SCH ×2 (08:18→16:28)
[2017-03-03] MEDS: AMLODIPINE BESYLATE 5 MG TABLET GT SCH (08:19)
[2017-03-03] MEDS ORDERED: LORAZEPAM 0.5 MG TABLET GT PRN (08:30)
[2017-03-03] MEDS: SEVELAMER CARBONATE 0.8 GM POWD.PACK GT SCH ×3 (09:49→16:26)
--- NOTE | 2017-03-03 15:00 | NUR ---
PT PRESENTS WITH LETHARGY WITH DIFFICULTY AWAKENING WITH STERNAL RUB. VITALS ASSESSED SBP IS 138, PULSE 87, SPO2 100%. PUPILS +1 REACTIVE COUGH REFLEX IS PRESENT BLOOD SUGAR CHECKED (INITIAL READING STATES "LO") NOTIFIED PRIMARY MD. D50 GIVEN, ORANGE JUICE BOX GIVEN THROUGH [employer] AND BLOOD SUGAR REASSESSED IS 213. PT IS ALSO OPENS HIS EYES TO VERBAL CUE FOR HIS NAME MD ORDERS FOR ACCUCHECK Q6HRS TF. NO FLUIDS AT THIS TIME. WILL CONTINUE TO ASSESS BLOOD SUGAR
[2017-03-03] MEDS ORDERED: INSULIN REGULAR, HUMAN 100 UNIT/ML 3 ML VIAL SQ PRN (15:30)
[2017-03-03] MEDS ORDERED: DEXTROSE 50%-WATER 50 ML DISP.SYRIN IV PRN ×2 (15:30→19:00)
--- NOTE | 2017-03-03 17:14 | NUR ---
RT PATIENT RECEIVED TRACHED WITH SHILEY #6 CUFFED ON [facility] VENT. CLINICAL INFORMATICS STRATEGIST DONE. BILAT BREATH SOUNDS ON AUSCULTATION. VENT PLUGGED INTO RED OUTLET. ALARMS SET AND WORKING PROPERLY. AMBU BAG AT HEAD OF BED. TX'S GIVEN ORDERED. NO ADVERSE EFFECTS OBSERVED. SUCTIONED SMALL AMOUNTS OF THICK,WHITE/YELLOW SECRETIONS. NO SOB OR SIGNS OF DISTRESS NOTED. WILL CONTINUE TO MONITOR FOR ANY CHANGES. Addendum: 03/03/17 at 1828 by SHANICE VILLARREAL RT Amended: Links added.
[2017-03-03] MEDS ORDERED: DEXTROSE 50%-WATER 50 ML DISP.SYRIN IVP STA (17:25)
[2017-03-03] MEDS ORDERED: BLOOD SUGAR DIAGNOSTIC 1 EACH STRIP IN SCH (18:00)
--- NOTE | 2017-03-03 18:22 | NUR ---
PT BLOOD GLUCOSE RIANA TO 200+AFTER FIRST ROUND OF D50. AT 1800 BLOOD GLUCOSE AGAIN IS AT 67. GAVE ANOTHER D50 AND CURRENT BLOOD GLUCOSE IS 107. TRYING TO PAGE FOR [employer] TO GET A HOLD OF ZAK TAYLOR OR SCOOBY JOYA.
--- NOTE | 2017-03-03 18:37 | NUR ---
ZAK TAYLOR ON THE UNIT DISCUSSED CASE WITH HIM REGARDING THE LOW BLOOD GLUCOSE LEVELS. AT THIS TIME PT IS NOT ON ANY LONG ACTING INSULIN. HE STATES DO NOT COVER HIGH BLOOD SUGARS WITH INSULIN, BUT KEEP CHECKING ACCUCHECKS ON CURRENT SCHEDULE AND D50 NEEDED. NO CONTINUES FLUIDS DUE TO PT IN ESRD. WILL ENDORSE
--- NOTE | 2017-03-03 21:15 | NUR ---
KARYN/REHAB SERVICES AIDE BLOOD SUGAR WAS 115, NO COVERAGE FOR THIS BUT WILL RECHECK IN 4 HRS AGAIN. PT WAS TURNED AND REPOSITIONED FOR COMFORT AND CARE.
[2017-03-03] MEDS: BLOOD SUGAR DIAGNOSTIC 1 EACH STRIP IN SCH (21:50)
[2017-03-04] VITALS (7 sets, daily range): BP systolic 100–139; BP diastolic 41–59
[2017-03-04] MEDS: BLOOD SUGAR DIAGNOSTIC 1 EACH STRIP IN SCH ×6 (00:10→21:23)
--- NOTE | 2017-03-04 00:20 | NUR ---
KARYN/WIRE TESTER G/TUBE RESIDUALS WERE 500ML, TURNED OFF FEEDING. WILL RECHECK RESIDUALS AGAIN IN 2 HRS. PT APPEARS TO COMFORTABLE NO ACUTE SIGN OF DISTRESS.
--- NOTE | 2017-03-04 01:10 | NUR ---
KARYN/EXPLORATION ENGINEER BLOOD SUGAR WAS 72, NO COVERAGE FOR THIS BUT WILL RECHECK IN 4 HRS AGAIN. PT WAS TURNED AND REPOSITIONED FOR COMFORT AND CARE.
--- NOTE | 2017-03-04 02:36 | NUR ---
KARYN/WIRE STRAIGHTENER G/TUBE RESIDUALS WERE 400ML, TURNED OFF FEEDING. WILL RECHECK RESIDUALS AGAIN IN 2 HRS. PT APPEARS TO COMFORTABLE NO ACUTE SIGN OF DISTRESS.
[2017-03-04] MEDS: ALBUTEROL FS 2.5 MG/3 ML VIAL.NEB NEB SCH ×6 (04:01→23:59)
[2017-03-04] MEDS: IPRATROPIUM NEB FS 0.5 MG/2.5 ML AMPUL.NEB NEB SCH ×6 (04:01→23:59)
[2017-03-04] MEDS: SIMETHICONE 80 MG TAB.CHEW GT SCH ×3 (04:18→21:25)
--- NOTE | 2017-03-04 04:43 | NUR ---
KARYN/BUFFER MACHINE BLOOD SUGAR WAS 96, NO COVERAGE FOR THIS BUT WILL RECHECK IN 4 HRS AGAIN. PT WAS TURNED AND REPOSITIONED FOR COMFORT AND CARE.
--- NOTE | 2017-03-04 06:40 | NUR ---
KARYN/AWNING HANGER PT'S RESIDUALS ARE STILL HIGH AT 375ML, WILL CONTINUE TO MONITOR THIS. AND WILL BE PASSED ON TO DAY SHIFT NURSE TO CONTINUE THE MONITORING.
[2017-03-04 06:51] LABS: BASOPHILS % (AUTO) 0.1 % (0.0-2.0); EOSINOPHILS # (AUTO) 0.2 /CMM (0.0-0.7); EOSINOPHILS % (AUTO) 2.6 % (0.0-6.0); HEMATOCRIT 27 % (39-51); HEMOGLOBIN 8.4 g/dL (13.5-17.5); LYMPHOCYTES # (AUTO) 0.7 /CMM (0.8-4.8); LYMPHOCYTES % (AUTO) 7.6 % (20.0-44.0); MEAN CORPUSCULAR HEMOGLOBIN 30 PG (26.0-33.0); MEAN CORPUSCULAR HGB CONC 31 g/dl (31.0-36.0); MEAN CORPUSCULAR VOLUME 97 fL (80-96); MONOCYTES # (AUTO) 0.5 /CMM (0.1-1.30); MONOCYTES % (AUTO) 5.3 % (2.0-12.0); NEUTROPHILS # (AUTO) 7.3 /CMM (1.8-8.9); NEUTROPHILS % (AUTO) 84.4 % (43.0-81.0); PLATELET COUNT (AUTO) 135 /CMM (150-450); RDW COEFFICIENT OF VARIATION 19.5 (11.5-15.0); RED BLOOD CELL COUNT(AUTO) 2.76 MIL/uL (4.5-6.0); WHITE BLOOD COUNT (AUTO) 8.6 K/uL (4.3-11.0)
[2017-03-04 07:22] LABS: CALCIUM, SERUM 8.6 mg/dL (8.5-10.1); CREATININE 4.4 mg/dL (0.6-1.3); MAGNESIUM 2.4 mg/dL (1.8-2.4); PHOSPHORUS 3.3 mg/dL (2.5-4.9); POTASSIUM 3.4 mmol/L (3.5-5.1)
--- NOTE | 2017-03-04 08:00 | NUR ---
TELE1/RN AM SHIFT INITIAL NOTES RECEIVED PT SLEEPING IN BED. PT A/O X 1-2, NO GRIMACE NOTED. NO ACUTE CHANGE OF CONDITION NOTED. ON VENTILATOR SET AT PRESCRIBED RATES. SATURATING @ 98%, LUNG SOUNDS CLEAR. ON TELE WITH SINUS RHYTHM, HR 75. IV SITE PATENT WITH NO S/S OF INFECTION. HL. ON GT FEEDING HELD D/T NOTED GASTRIC RESIDUAL 200ML. RECTAL TUBE IN PLACED WITH BROWN LIQUID FECAL CONTENT. PT IS COMFORTABLE AT THIS TIME. SCHEDULED AM MEDS TO BE GIVEN. CL WITHIN REACHED, SAFETY MAINTAINED AND ISOLATION OBSERVED. ON GOING MONITORING.
[2017-03-04] MEDS: DOXAZOSIN MESYLATE (1 MG) 1 MG TABLET GT SCH ×2 (08:18→16:51)
[2017-03-04] MEDS: CARVEDILOL 6.25 MG TABLET GT SCH ×2 (08:19→16:50)
[2017-03-04] MEDS: ISOSORBIDE DINITRATE (10MG) 10 MG TABLET GT SCH ×3 (08:20→16:51)
[2017-03-04] MEDS: AMLODIPINE BESYLATE 5 MG TABLET GT SCH (08:21)
[2017-03-04] MEDS: BENAZEPRIL HCL 20 MG TABLET GT SCH ×2 (08:21→16:51)
[2017-03-04] MEDS: SEVELAMER CARBONATE 0.8 GM POWD.PACK GT SCH ×3 (09:32→16:49)
[2017-03-04] MEDS: COLISTIMETHATE SODIUM 100 MG in IV NS 0.9% 50 ML IV SCH (09:32)
[2017-03-04] MEDS: POTASSIUM CHLORIDE 20 MEQ POWDER PACKET GT SCH (09:32)
[2017-03-04] MEDS: ACIDOPHILUS/BULGARICUS 1 EACH TAB.CHEW GT SCH ×2 (09:32→16:50)
[2017-03-04] MEDS: ATORVASTATIN 10 MG TABLET GT SCH (09:32)
[2017-03-04] MEDS: FERROUS SULFATE (325 MG) 325 MG/TAB TABLET GT SCH ×3 (09:32→16:50)
[2017-03-04] MEDS: PROSOURCE / PROSTAT (PYXIS) 30 ML UDC GT SCH ×2 (09:32→16:49)
[2017-03-04] MEDS: ASCORBIC ACID 500 MG TABLET GT SCH (09:32)
[2017-03-04] MEDS: ESCITALOPRAM OXALATE (10 MG) 10 MG TABLET GT SCH ×2 (09:33→16:50)
[2017-03-04] MEDS: RIFAMPIN 300 MG CAPSULE PO SCH (09:33)
[2017-03-04] MEDS: COLCHICINE 0.6 MG TABLET GT SCH (09:33)
[2017-03-04] MEDS: VIT B CMPLX 3/FA/VIT C/BIOTIN 1 TAB TABLET GT SCH (09:33)
[2017-03-04] MEDS: FAMOTIDINE (20 MG) 20 MG TABLET GT SCH (09:33)
[2017-03-04] MEDS: ALLOPURINOL 100 MG TABLET GT SCH (09:33)
[2017-03-04] MEDS: HYDROGEL DRESSING 90 GM TUBE TP SCH (09:34)
[2017-03-04] MEDS: NEOMY SULF/BACITRAC ZN/POLY 15 GM TUBE TP SCH (09:34)
[2017-03-04] MEDS: PANTOPRAZOLE 40 MG VIAL IV SCH (09:34)
[2017-03-04] MEDS ORDERED: EPOETIN ALFA (10,000 UNIT) 10,000 UNIT/ML VIAL IV ONE (11:00)
--- NOTE | 2017-03-04 12:00 | NUR ---
TELE1/POULTRY VETERINARIAN TX NO CHANGE OF CONDITION. DIALYSIS TX RENDERED, NO FLUID REMOVED. MONITORING CONTINUED.
[2017-03-04] MEDS ORDERED: SECONDARY IV SET 1 EA INFUS.SET MC ONE (16:00)
[2017-03-04] MEDS ORDERED: IV SET PRIMARY PUMP SET 1 EA INFUS.SET MC ONE (16:00)
--- NOTE | 2017-03-04 16:00 | NUR ---
TELE1/RN AFTERNOON ROUNDS RESIDUAL CHECKED STILL LARGE AMOUNTS, 500ML. GTF CONTINUE TO HOLD. PM CARE PROVIDED. MONITORING CONTINUED.
[2017-03-04] MEDS ORDERED: IV NS 0.9% 250 ML IV ONE (16:01)
[2017-03-04] MEDS ORDERED: VANCOMYCIN 1 GM in IV D5W 250 ML IV ONE (16:30)
--- NOTE | 2017-03-04 19:44 | NUR ---
TELE1/RN AM SHIFT END SHIFT ALL NEEDS MET. GT FEEDING STILL ON HOLD D/T RESIDUAL. RECTAL TUBE INTACT. ENDORSED TO PM NURSE TO CONTINUE CARE. CL WITHIN REACHED, SAFETY MAINTAINED AND ISOLATION OBSERVED.
--- NOTE | 2017-03-04 20:04 | NUR ---
450 cc gt residual , continue to hold feeding .will recheck again in 2 hrs
[2017-03-05] VITALS (7 sets, daily range): BP systolic 97–119; BP diastolic 44–63
--- NOTE | 2017-03-05 00:25 | NUR ---
gt residual is 150cc orange colored, resume feeding @ 35cc/hr.
[2017-03-05] MEDS: BLOOD SUGAR DIAGNOSTIC 1 EACH STRIP IN SCH ×6 (00:45→20:15)
[2017-03-05] MEDS: IPRATROPIUM NEB FS 0.5 MG/2.5 ML AMPUL.NEB NEB SCH ×6 (03:52→23:28)
[2017-03-05] MEDS: ALBUTEROL FS 2.5 MG/3 ML VIAL.NEB NEB SCH ×6 (03:53→23:28)
[2017-03-05] MEDS: SIMETHICONE 80 MG TAB.CHEW GT SCH ×3 (05:01→20:15)
--- NOTE | 2017-03-05 08:00 | NUR ---
TELE1/RN AM SHIFT INITIAL NOTES RECEIVED PT SLEEPING IN BED. PT A/O X 1-2, NO ACUTE CHANGE OF CONDITION NOTED, NO GRIMACE. ON VENTILATOR SET AT PRESCRIBED RATES. SATURATING @ 100%, LUNG SOUNDS CLEAR. ON TELE WITH SINUS RHYTHM, HR 81. IV SITE PATENT WITH NO S/S OF INFECTION. HL. ON GT FEEDING ON GOING @ 35CC/HR, NO GASTRIC RESIDUAL NOTED. RECTAL TUBE IN PLACED WITH DARK BROWN LIQUID FECAL MATTER OUTPUT. SCHEDULED AM MEDS TO BE GIVEN, EXCEPT FOR BP MEDS D/T LOW BP 97/44, HR 81. BLOOD GLUCOSE 94. PT IS COMFORTABLE. CL WITHIN REACHED, SAFETY MAINTAINED AND ISOLATION OBSERVED. ON GOING MONITORING.
--- NOTE | 2017-03-05 08:01 | NUR ---
pt had large bm leaking around the flexiseal, liquid stool 200 cc overnight from flexiseal , restarted feeding after midnight with residual of 150cc, accucheck 56 mg/dl and given D50. and accucheck repeated 87mg/dl. vss,afebrile kept clean and dry.slept well overnight.
[2017-03-05] MEDS: AMLODIPINE BESYLATE 5 MG TABLET GT SCH (09:00)
[2017-03-05] MEDS: ISOSORBIDE DINITRATE (10MG) 10 MG TABLET GT SCH ×3 (09:00→17:00)
[2017-03-05] MEDS: DOXAZOSIN MESYLATE (1 MG) 1 MG TABLET GT SCH ×2 (09:00→17:00)
[2017-03-05] MEDS: CARVEDILOL 6.25 MG TABLET GT SCH ×2 (09:00→17:00)
[2017-03-05] MEDS: BENAZEPRIL HCL 20 MG TABLET GT SCH ×2 (09:00→17:00)
[2017-03-05] MEDS: PANTOPRAZOLE 40 MG VIAL IV SCH (09:03)
[2017-03-05] MEDS: COLISTIMETHATE SODIUM 100 MG in IV NS 0.9% 50 ML IV SCH (09:04)
[2017-03-05] MEDS: VIT B CMPLX 3/FA/VIT C/BIOTIN 1 TAB TABLET GT SCH (09:04)
[2017-03-05] MEDS: ESCITALOPRAM OXALATE (10 MG) 10 MG TABLET GT SCH ×2 (09:04→17:38)
[2017-03-05] MEDS: PROSOURCE / PROSTAT (PYXIS) 30 ML UDC GT SCH ×2 (09:04→17:38)
[2017-03-05] MEDS: COLCHICINE 0.6 MG TABLET GT SCH (09:04)
[2017-03-05] MEDS: ALLOPURINOL 100 MG TABLET GT SCH (09:05)
[2017-03-05] MEDS: FAMOTIDINE (20 MG) 20 MG TABLET GT SCH (09:05)
[2017-03-05] MEDS: ASCORBIC ACID 500 MG TABLET GT SCH (09:06)
[2017-03-05] MEDS: POTASSIUM CHLORIDE 20 MEQ POWDER PACKET GT SCH (09:06)
[2017-03-05] MEDS: ATORVASTATIN 10 MG TABLET GT SCH (09:07)
[2017-03-05] MEDS: FERROUS SULFATE (325 MG) 325 MG/TAB TABLET GT SCH ×3 (09:07→17:38)
[2017-03-05] MEDS: ACIDOPHILUS/BULGARICUS 1 EACH TAB.CHEW GT SCH ×2 (09:07→17:38)
[2017-03-05] MEDS: RIFAMPIN 300 MG CAPSULE PO SCH (09:07)
[2017-03-05] MEDS: SEVELAMER CARBONATE 0.8 GM POWD.PACK GT SCH ×3 (09:09→17:38)
[2017-03-05] MEDS: NEOMY SULF/BACITRAC ZN/POLY 15 GM TUBE TP SCH (09:10)
[2017-03-05] MEDS: HYDROGEL DRESSING 90 GM TUBE TP SCH (09:10)
--- NOTE | 2017-03-05 12:00 | NUR ---
TELE1/RN NOON ROUNDS NO ACUTE CHANGE OF CONDITION. ORAL AND BACK CARE PROVIDED. ON GOING MONITORING.
--- NOTE | 2017-03-05 19:20 | NUR ---
TELE1/RN AM SIFT END NOTES NO GASTRIC RESIDUAL NOTED THROUGHOUT THE SHIFT. NEEDS MET. PT ENDORSED TO PM NURSE TO CONTINUE CARE. CL WITHIN REACHED, SAFETY MAINTAINED AND ISOLATION OBSERVED.
--- NOTE | 2017-03-05 20:00 | NUR ---
RN INITIAL NOTE; PT ON THE BED RESTING COMFORTABLY, AWAKE , ABLE TO MOUTH WORDS , ON MECH VENT, SETTING ORDERED. SHOWING SR WITH PVC , HR 80s ON TELE MONITOR. LFA 20 G PERIPHERAL IV INTACT AND PATENT , G TUBE INTACT AND PATENT WITH CONTINUE NOVASOURCE AT 30 ML/HR, RESIDUAL NOTED 10ML, ASPIRATION PRECAUTION APPLIED. PT IS ANURIC. FLEXI SEAL INTACT AND DRAINING GREEN LIQUID STOOL. DENIED ANY PAIN AT THIS TIME. BED IN THE LOWEST/LOCKED POSITION , SAFETY MEASURES APPLIED, WILL CONTINUE OT MONITOR.
[2017-03-05] MEDS: RENAL NOVASOURCE 1,000 ML BOTTLE GT PRN (23:08)
[2017-03-06] VITALS (7 sets, daily range): BP systolic 95–122; BP diastolic 39–58
[2017-03-06] MEDS: BLOOD SUGAR DIAGNOSTIC 1 EACH STRIP IN SCH ×6 (00:31→20:33)
[2017-03-06] MEDS: ALBUTEROL FS 2.5 MG/3 ML VIAL.NEB NEB SCH ×6 (03:43→23:45)
[2017-03-06] MEDS: IPRATROPIUM NEB FS 0.5 MG/2.5 ML AMPUL.NEB NEB SCH ×6 (03:43→23:45)
[2017-03-06] MEDS: SIMETHICONE 80 MG TAB.CHEW GT SCH ×3 (04:40→20:33)
[2017-03-06] MEDS: INSULIN REGULAR, HUMAN 100 UNIT/ML 3 ML VIAL SQ PRN (04:55)
[2017-03-06 06:37] LABS: BASOPHILS % (AUTO) 0.3 % (0.0-2.0); EOSINOPHILS # (AUTO) 0.2 /CMM (0.0-0.7); EOSINOPHILS % (AUTO) 2.4 % (0.0-6.0); HEMATOCRIT 27 % (39-51); HEMOGLOBIN 8.3 g/dL (13.5-17.5); LYMPHOCYTES # (AUTO) 0.6 /CMM (0.8-4.8); LYMPHOCYTES % (AUTO) 6.1 % (20.0-44.0); MEAN CORPUSCULAR HEMOGLOBIN 29 PG (26.0-33.0); MEAN CORPUSCULAR HGB CONC 30 g/dl (31.0-36.0); MEAN CORPUSCULAR VOLUME 96 fL (80-96); MONOCYTES # (AUTO) 0.3 /CMM (0.1-1.30); MONOCYTES % (AUTO) 3.2 % (2.0-12.0); NEUTROPHILS # (AUTO) 8.4 /CMM (1.8-8.9); PLATELET COUNT (AUTO) 154 /CMM (150-450); RDW COEFFICIENT OF VARIATION 19.5 (11.5-15.0); RED BLOOD CELL COUNT(AUTO) 2.85 MIL/uL (4.5-6.0); WHITE BLOOD COUNT (AUTO) 9.6 K/uL (4.3-11.0)
[2017-03-06 06:49] LABS: CREATININE 4.3 mg/dL (0.6-1.3); MAGNESIUM 2.4 mg/dL (1.8-2.4); PHOSPHORUS 2.9 mg/dL (2.5-4.9); POTASSIUM 4.3 mmol/L (3.5-5.1)
--- NOTE | 2017-03-06 07:18 | NUR ---
RN EOS NOTE; PT REMAINED STABLE DURING THE SHIFT, NO ANY DISTRESS NOTED, REMAINED SR ON TELE MONITOR. IV CANNULA AND LEFT CHEST WALL PERMA CATH INTACT. G TUBE FEEDING TOLERATED WELL, RESIDUAL WITHIN NORMAL RANGE. ASPIRATION PRECAUTION APPLIED. FLEXI SEAL DRAINING LIQUID STOOL. TOTAL CARE RENDERED , BS WNL. TURNED AND REPOSITIONED Q2H , ENDORSED NEXT SHIFT NURSE FOR CONTINUITY OF CARE.
--- NOTE | 2017-03-06 08:00 | NUR ---
TELE1/RN AM SHIFT INITIAL NOTES RECEIVED PT SLEEPING IN BED. PT A/O X 1-2, NO GRIMACE OR ACUTE CHANGE OF CONDITION NOTED. ON VENTILATOR SET AT PRESCRIBED RATES. SATURATING @ 98%, LUNG SOUNDS CLEAR. ON TELE WITH SINUS RHYTHM WITH PVCs, PACs and BBB, HR 89. IV SITE, FLUSHED, PATENT WITH NO S/S OF INFECTION. HL. ON GT FEEDING ON GOING @ 35CC/HR, NO GASTRIC RESIDUAL NOTED, FLUSHED, PATENT. RECTAL TUBE IN PLACED WITH DARK BROWN LIQUID FECAL MATTER OUTPUT. BS CHECKED, 100. SCHEDULED AM MEDS TO BE GIVEN, EXCEPT FOR BP MEDS, PT IS SCHEDULED TO BE DIALYZED TODAY. PT IS COMFORTABLE AT THIS TIME. CL WITHIN REACHED, SAFETY MAINTAINED AND ISOLATION OBSERVED. ON GOING MONITORING.
[2017-03-06] MEDS: DOXAZOSIN MESYLATE (1 MG) 1 MG TABLET GT SCH ×2 (08:21→17:00)
[2017-03-06] MEDS: CARVEDILOL 6.25 MG TABLET GT SCH ×2 (08:21→17:00)
[2017-03-06] MEDS: AMLODIPINE BESYLATE 5 MG TABLET GT SCH (08:22)
[2017-03-06] MEDS: ISOSORBIDE DINITRATE (10MG) 10 MG TABLET GT SCH ×3 (08:22→17:00)
[2017-03-06] MEDS: BENAZEPRIL HCL 20 MG TABLET GT SCH ×2 (08:22→17:00)
[2017-03-06] MEDS: PROSOURCE / PROSTAT (PYXIS) 30 ML UDC GT SCH ×2 (09:10→17:00)
[2017-03-06] MEDS: COLISTIMETHATE SODIUM 100 MG in IV NS 0.9% 50 ML IV SCH (09:10)
[2017-03-06] MEDS: VIT B CMPLX 3/FA/VIT C/BIOTIN 1 TAB TABLET GT SCH (09:11)
[2017-03-06] MEDS: POTASSIUM CHLORIDE 20 MEQ POWDER PACKET GT SCH (09:11)
[2017-03-06] MEDS: FERROUS SULFATE (325 MG) 325 MG/TAB TABLET GT SCH ×3 (09:11→17:00)
[2017-03-06] MEDS: FAMOTIDINE (20 MG) 20 MG TABLET GT SCH (09:11)
[2017-03-06] MEDS: RIFAMPIN 300 MG CAPSULE PO SCH (09:11)
[2017-03-06] MEDS: ALLOPURINOL 100 MG TABLET GT SCH (09:11)
[2017-03-06] MEDS: COLCHICINE 0.6 MG TABLET GT SCH (09:11)
[2017-03-06] MEDS: SEVELAMER CARBONATE 0.8 GM POWD.PACK GT SCH ×3 (09:11→17:00)
[2017-03-06] MEDS: ACIDOPHILUS/BULGARICUS 1 EACH TAB.CHEW GT SCH ×2 (09:11→17:00)
[2017-03-06] MEDS: ATORVASTATIN 10 MG TABLET GT SCH (09:11)
[2017-03-06] MEDS: HYDROGEL DRESSING 90 GM TUBE TP SCH (09:12)
[2017-03-06] MEDS: NEOMY SULF/BACITRAC ZN/POLY 15 GM TUBE TP SCH (09:12)
[2017-03-06] MEDS: PANTOPRAZOLE 40 MG VIAL IV SCH (09:12)
[2017-03-06] MEDS: ASCORBIC ACID 500 MG TABLET GT SCH (09:12)
[2017-03-06] MEDS: ESCITALOPRAM OXALATE (10 MG) 10 MG TABLET GT SCH ×2 (09:13→17:00)
[2017-03-06] MEDS ORDERED: EPOETIN ALFA (10,000 UNIT) 10,000 UNIT/ML VIAL SQ ONE (13:30)
--- NOTE | 2017-03-06 15:00 | NUR ---
TELE1/RN ROUNDS DIALYSIS TX RENDERED. REMOVED 1 LITER OF FLUID. BP 105/46, HR 92. NO ACUTE CHANGE OF CONDITION. MONITORING CONTINUED.
--- NOTE | 2017-03-06 19:30 | NUR ---
ELIGIBILITY WORKER INITIAL NOTES RECEIVED PATIENT IN BED, ASLEEP, ALERT TO SELF, NODS YES/NO. TRACH MIDLINE AND INTACT, ON MECHANICAL VENT AT PRESCRIBED SETTINGS, TOLERATING WELL, FREE FROM ANY S/S OF RESPIRATORY DISTRESS. SR WITH OCCASIONAL PVCS ON TELEMETRY MONITORING. NOTED WITH FLEXISEAL, DRAINING BROWN, WATERY STOOL TO GRAVITY. IV SITE PATENT AND INTACT, FLUSHED WITH NS, FREE FROM ANY S/S OF INFILTRATION OR PHLEBITIS. NOTED WITH LEFT CHEST PERMACATH, DRESSING CLEAN AND DRY. GT PATENT AND INTACT, ONGOING TUBE FEEDINGS, NO GASTRIC RESIDUALS NOTED AT THIS TIME. CALL LIGHT LEFT WITHIN EASY REACH, BED IN LOWEST AND LOCKED POSITION, WILL CONTINUE TO CLOSELY MONITOR
--- NOTE | 2017-03-06 19:37 | NUR ---
TELE1/RN AM SHIFT END NOTES NO ACUTE CHANGE OF CONDITION NOTED DURING THE SHIFT. ALL NEEDS MET. PT IS COMFORTABLE, ENDORSED TO PM NURSE TO CONTINUE CARE. CL WITHIN REACHED AND SAFETY MAINTAINED.
--- NOTE | 2017-03-06 19:53 | NUR ---
PT RCVD. ON [facility] VENT WITH NOTED SETTINGS. VENT ALARM WORKING AND AUDIBLE. VENT PLUGGED INTO RED OUTLET. TRACH SECURE IN AND IN PROPER POSITION. CUFF CHECKED CERTIFIED ACTIVITIES DIRECTOR. PT SUCTIONED WITH MODERATE AMOUNT OF THICK YELLOWISH SECRETIONS. NO RESPIRATORY DISTRESS AT THIS TIME. AMBU BAG AT BEDSIDE. WILL CONTINUE TO MONITOR
[2017-03-07] VITALS: BP 123/56
--- NOTE | 2017-03-07 | NUR ---
RN NOTES GASTRIC RESIDUALS 200CC AT THIS TIME. PER ORDERS, RESUME FEEDING UNLESS GREATER THAN 300CC. WILL CONTINUE TO CLOSELY MONITOR
[2017-03-07] MEDS: BLOOD SUGAR DIAGNOSTIC 1 EACH STRIP IN SCH ×5 (00:32→17:17)
[2017-03-07] MEDS: ALBUTEROL FS 2.5 MG/3 ML VIAL.NEB NEB SCH ×5 (03:38→19:30)
[2017-03-07] MEDS: IPRATROPIUM NEB FS 0.5 MG/2.5 ML AMPUL.NEB NEB SCH ×5 (03:38→19:30)
[2017-03-07 04:00] VITALS: BP 99/38
--- NOTE | 2017-03-07 04:00 | NUR ---
RN NOTES GASTRIC RESIDUALS AT THIS TIME = 150CC. TUBE FEEDINGS RESUMED ORDERED
[2017-03-07] MEDS: SIMETHICONE 80 MG TAB.CHEW GT SCH ×2 (04:06→12:09)
[2017-03-07] MEDS ORDERED: IV NS 0.9% 250 ML IV ONE (05:33)
[2017-03-07] MEDS: RENAL NOVASOURCE 1,000 ML BOTTLE GT PRN (05:54)
--- NOTE | 2017-03-07 06:00 | NUR ---
RN NOTES GASTRIC RESIDUALS AT THIS TIME = 150CC. TUBE FEEDINGS RESUMED ORDERED. WILL ENDORSE THE PATIENT TO THE AM SHIFT NURSE FOR MAVERICK
--- NOTE | 2017-03-07 06:30 | NUR ---
RN CLOSING NOTES WILL ENDORSE THE PATIENT TO THE AM SHIFT NURSE FOR MAVERICK. FLEXISEAL INTACT. BLOOD SUGARS NOTED TO SLIGHTLY DECREASE DESPITE ONGOING TUBE FEEDS. WILL ENDORSE TOP THE AM, SHIFT NURSE TO FOLLOW UP REGARDING BLOOD SUGAR LEVELS AND GASTRIC RESIDUALS
--- NOTE | 2017-03-07 07:25 | NUR ---
RN INITIAL NOTES: Rec'd pt asleep on bed, HOB elevated, not in any distress, alert & mouths words. Pt on mech vent via trach (Shiley 6) w/ ff settings: AC 12, TV 550, FiO2 40%, PEEP 5. On telemonitoring, SR w/ occasional PVCs, HR at 83 bpm. Pt has patent & intact flexiseal draining to liquid stool. Has patent & intact PEG on continuous tube feeding Novasource at 35 cc/hr infusing well, no residual noted upon checking. Has L chest permacath in place, C/D/I. has RFA G20, SL, flushed, patent & intact w/ no signs of infection/ infiltration noted. Provided comfort & safety measures. Call light placed w/in reach. Bed kept low & in locked position. Will turn, reposition & offload heels. Will continue to monitor.
[2017-03-07 08:00] VITALS: BP 125/46
--- NOTE | 2017-03-07 08:00 | NUR ---
RN NOTES: Random Accucheck done 64 mg/dL.
[2017-03-07] MEDS: CARVEDILOL 6.25 MG TABLET GT SCH ×2 (09:27→17:00)
[2017-03-07] MEDS: ALLOPURINOL 100 MG TABLET GT SCH (09:27)
[2017-03-07] MEDS: PANTOPRAZOLE 40 MG VIAL IV SCH (09:27)
[2017-03-07] MEDS: POTASSIUM CHLORIDE 20 MEQ POWDER PACKET GT SCH (09:27)
[2017-03-07] MEDS: FERROUS SULFATE (325 MG) 325 MG/TAB TABLET GT SCH ×3 (09:27→17:19)
[2017-03-07] MEDS: COLCHICINE 0.6 MG TABLET GT SCH (09:28)
[2017-03-07] MEDS: AMLODIPINE BESYLATE 5 MG TABLET GT SCH (09:28)
[2017-03-07] MEDS: FAMOTIDINE (20 MG) 20 MG TABLET GT SCH (09:28)
[2017-03-07] MEDS: DOXAZOSIN MESYLATE (1 MG) 1 MG TABLET GT SCH ×2 (09:28→17:00)
[2017-03-07] MEDS: PROSOURCE / PROSTAT (PYXIS) 30 ML UDC GT SCH ×2 (09:28→17:17)
[2017-03-07] MEDS: BENAZEPRIL HCL 20 MG TABLET GT SCH ×2 (09:28→17:00)
[2017-03-07] MEDS: RIFAMPIN 300 MG CAPSULE PO SCH (09:29)
[2017-03-07] MEDS: ASCORBIC ACID 500 MG TABLET GT SCH (09:29)
[2017-03-07] MEDS: ATORVASTATIN 10 MG TABLET GT SCH (09:29)
[2017-03-07] MEDS: ACIDOPHILUS/BULGARICUS 1 EACH TAB.CHEW GT SCH ×2 (09:29→17:19)
[2017-03-07] MEDS: SEVELAMER CARBONATE 0.8 GM POWD.PACK GT SCH ×3 (09:29→17:17)
[2017-03-07] MEDS: ISOSORBIDE DINITRATE (10MG) 10 MG TABLET GT SCH ×3 (09:29→17:00)
[2017-03-07] MEDS: VIT B CMPLX 3/FA/VIT C/BIOTIN 1 TAB TABLET GT SCH (09:29)
[2017-03-07] MEDS: ESCITALOPRAM OXALATE (10 MG) 10 MG TABLET GT SCH ×2 (09:29→17:19)
[2017-03-07] MEDS: HYDROGEL DRESSING 90 GM TUBE TP SCH (09:30)
[2017-03-07] MEDS: Z GUARD REMEDY 2 OZ OINT TP PRN (09:30)
[2017-03-07] MEDS: NEOMY SULF/BACITRAC ZN/POLY 15 GM TUBE TP SCH (09:31)
[2017-03-07] MEDS: COLISTIMETHATE SODIUM 100 MG in IV NS 0.9% 50 ML IV SCH (09:40)
[2017-03-07] MEDS: INSULIN REGULAR, HUMAN 100 UNIT/ML 3 ML VIAL SQ PRN ×3 (09:41→17:20)
--- NOTE | 2017-03-07 11:00 | NUR ---
RN NOTES: Seen & examined by RYLAN King w/ orders for DC today and to keep flexiseal (cont loose stool, open sacral wound) and IV line (12 weeks antibiotics) upon DC. Start Reglan q8h. Fernando made aware of blood sugar results.
[2017-03-07 12:00] VITALS: BP_SYST 110; BP_SYST 111; BP_DIAS 45
[2017-03-07] MEDS ORDERED: METOCLOPRAMIDE HCL 10 MG TABLET GT SCH (13:00)
[2017-03-07 16:00] VITALS: BP 98/40
[2017-03-07 17:00] VITALS: BP 98/40
--- NOTE | 2017-03-07 19:00 | NUR ---
RN CLOSING NOTES: No acute changes noted w/in shift. Pt tolerated prescribed mech vent settings. On telemonitoring, still SR w/ HR at 82 bpm. Flexiseal kept patent & intact draining to liquid stool. PEG kept patent & intact on continuous tube feeding Novasource at 35 cc/hr infusing well, no residual noted w/in shift. L chest permacath kept in place, C/D/I. RFA G20, SL, kept patent & intact w/ no signs of infection/ infiltration noted. Pt kept well rested. Call light placed w/in reach. Bed kept low & in locked position. Wound care done. Family (son) made aware of DC back to SNF this morning. Report given to Mary at [facility]. DC documents endorsed to Estevan RN for pt's DC. Awaiting for EMT.
--- NOTE | 2017-03-07 19:45 | NUR ---
RN NOTES - DISCHARGE [facility] EMT KAI AND RT EDGARDO WITH UNIT #[id number] AT BEDSIDE TO TRANSPORT PATIENT TO [facility]. GT FLUSHED WITH 30 CC WATER, PATENT AND INTACT, CLAMPED. IV FLUSHED WITH NS, PATENT AND INTACT, FREE FROM ANY S/S OF INFILTRATION OR PHLEBITIS. FLEXISEAL PATENT AND INTACT, DRAINING BROWN LIQUID FECAL MATTER TO DRAINAGE BAG VIA GRAVITY. FLEXISEAL AND IV GOING WITH PATIENT FOR IV ATB AT SENIOR CARE AND WOUND MAINTENANCE FOR INCONTINENCE. ALL PERTINENT PAPERWORK GIVEN TO [facility] STAFF. PATIENT DISCHARGED TO [facility] IN STABLE CONDITION Addendum: 03/07/17 at 2007 by ELMA SANTIAGO RN BLOOD SUGAR 77 UPON DC
== END 2017-03-07 20:14 | DRG 207 ==
LOC: ER 08:43 → TELE 11:35 → TELE-TD 12:26 → TELE1 02-23 09:00
PROVIDERS: ADMIT Family Medicine; ATTEND Family Medicine
PROC: 5A1955Z Respiratory Ventilation, Greater than 96 Consecutive Hours (ICD-10-PCS; principal; 2017-02-22)
PROC: 5A1D60Z (ICD-10-PCS; 2017-02-23)
PROC: 02HV33Z Insertion of Infusion Device into Superior Vena Cava, Percutaneous Approach (ICD-10-PCS; 2017-02-28)
PROC: 02HV33Z Insertion of Infusion Device into Superior Vena Cava, Percutaneous Approach (ICD-10-PCS; 2017-03-02)
PROC: B518ZZA Fluoroscopy of Superior Vena Cava, Guidance (ICD-10-PCS; 2017-03-02)
DX: J95.851 Ventilator associated pneumonia (principal); A41.02 Sepsis due to Methicillin resistant Staphylococcus aureus; E43 Unspecified severe protein-calorie malnutrition; G92 Toxic encephalopathy; J15.6 Pneumonia due to other Gram-negative bacteria; R53.2 Functional quadriplegia; N18.6 End stage renal disease; J96.22 Acute and chronic respiratory failure with hypercapnia; E87.1 Hypo-osmolality and hyponatremia; I12.0 Hypertensive chronic kidney disease with stage 5 chronic kidney disease or end stage renal disease; Z99.11 Dependence on respirator [ventilator] status; J44.0 Chronic obstructive pulmonary disease with (acute) lower respiratory infection; D68.59 Other primary thrombophilia; J98.11 Atelectasis; Z99.2 Dependence on renal dialysis; Z93.0 Tracheostomy status; Z93.1 Gastrostomy status; Z95.1 Presence of aortocoronary bypass graft; D64.9 Anemia, unspecified; Z68.21 Body mass index [BMI] 21.0-21.9, adult; Y84.8 Other medical procedures as the cause of abnormal reaction of the patient, or of later complication, without mention of misadventure at the time of the procedure; D69.2 Other nonthrombocytopenic purpura; L89.621 Pressure ulcer of left heel, stage 1; L89.611 Pressure ulcer of right heel, stage 1; E78.5 Hyperlipidemia, unspecified; M10.9 Gout, unspecified; N40.0 Benign prostatic hyperplasia without lower urinary tract symptoms; E87.6 Hypokalemia; I25.10 Atherosclerotic heart disease of native coronary artery without angina pectoris; L89.159 Pressure ulcer of sacral region, unspecified stage; L89.309 Pressure ulcer of unspecified buttock, unspecified stage; Z87.891 Personal history of nicotine dependence
CPT/HCPCS: 31720; 36415; 36600; 70450-TC; 71010-TC; 80048-TC; 80053-TC; 80076-TC; 80202-TC; 82140-TC; 82962-TC; 83605-TC; 83735-TC; 84100-TC; 84134-TC; 84443-TC; 84484-TC; 85025-TC; 85730-TC; 87040-TC; 87070-TC; 87081-TC; 87186-TC; 87400; 90935-TC; 93307-TC; 94002-TC; 94003-TC; A4216; A4606; A6248; A6253; A6402; A6403; C1750; C9113; J0692; J0770; J0885; J1644; J1815; J1956; J2185; J2405; J2543; J2765; J3370; J3480; J3490; J7030; J7050; J7060; J8597; Z7610